=== PATIENT | female | born 1970 | race Caucasian/White ===

== ENCOUNTER 2024-08-31 14:22 | Outpatient (CLI) | payer OTHER, BC, SELFPAY ==
--- OUTSIDE RECORDS SUMMARY | 2017-11-10 13:00 | XMS_ITS | Encounter Summary ---
Author Organization [facility] Address [address] [place] [address] Care Team Providers Care Lead Burner Supervisor Name Role Phone Hilario Zapata DO Primary Care Provider Unavailable Encounter Details Date Type Department Care Team (Late st Contact Info) Description 11/10/2017 1:00 PM EDT Hospital Encounter [facility] [address] [facility], [address] [place] [phone] Paulo Burch MD [address] [facility] [address] [place] [address] Social History Tobacco Use Types Packs/Day Years Used Date Smoking Tobacco: Never Passive Smoke Exposure: Past Smokeless Tobacco: Never Alcohol Use Standard Drinks/Week Comments No 0 (1 standard drink = 0.6 oz pur e alcohol) Overall Financial Resource Strain (CARDIA) Answe r Date Recorded How hard is it for you to pa y for the very basics like food, housing, medical care, and heating? Not hard at all 09/18/2020 PHQ-2 Answer Date Recorded PHQ-9 Total Score 0 09/18/2020 Hunger Vital Sign Answer Date Recorded Within the past 12 months, y ou worried that your food would run out before you got the money to buy more. Never true 09/19/19 21 Within the past 12 months, t he food you bought just didn't last and you didn't have money to get more. Never true 09/18/2020 Comments No Sex and Gender Information Value Date Recorded Sex Assigned at Not on file Legal Sex Female 6:48 AM EST Gender Identity Not on file Sexual Orientation Not on file COVID-19 Exposure Response Date Recorded In the last month, have you been in contact with someone who was confirmed or suspected to have Coronavirus / COVID-19? No / Unsure 02/18/2020 2:39 PM EST documented as of this encounter Plan of Treatment Not on file documented as of this encounter Procedures Procedure Name Priority Date/Time Associated Diagnosis Comments BASELINE DIAGNOSTIC SLEEP STUDY 11/30/2017 12:23 PM EDT documented in this encounter Results * BASELINE DIAGNOSTIC SLEEP STUDY (11/30/2017 12:23 PM EDT) [facility] SLEEP CENTER ORDERABLES Final Re sult documented in this encounter Visit Diagnoses Not on filedocumented in this encounter Care Teams Lead Burner Supervisor Relationship Specialty Start Date End Date Hilario Zapata DO PCP - General Family Medicine 03/14/15 04/30/18 documented as of this encounter
--- OUTSIDE RECORDS SUMMARY | 2024-07-14 09:00 | XMS_ITS | Encounter Summary ---
Author Organization [place] [address] Care Team Providers Care Refining Supervisor Name Role Phone Janel Lubin MD Primary Care Provider [phone] Reason for Referral * Mammography (Routine) - Authorized Specialty Diagnoses / Procedures Referred By Contac t Referred To Contact Radiology Diagnoses Encounter for screening mammogram for breast cancer Procedures MM MAMMO DIGITAL MELE SCREEN BILAT Janel Lubin MD [address] [place] [address] Phone: tel: fax: Referral ID Status Reason Start Date Expiration Date V isits Requested Visits Authorized [id number] Authorized 07/14/2024 07/14/2026 1 1 Reason for Visit * Reason Comments Obesity Hypertension Hyperlipidemia Depression Encounter Details Date Type Department Care Team (Late st Contact Info) Description 07/14/2024 9:00 AM EDT Office Visit [facility] [address] [place] [phone] Janel Lubin MD [address] [place] [address] Obesity, Class III, BMI 40-49.9 (morbid obesity) (Primary Dx); Encounter for screening mammogram for breast cancer; Vitamin B 12 deficiency; Essential hypertension; Major depressive disorder, recurrent, mild; Immunity status testing Social History Tobacco Use Types Packs/Day Years Used Date Smoking Tobacco: Never Smokeless Tobacco: Never Alcohol Use Standard Drinks/Week Comments Never 0 (1 standard drink = 0.6 oz pur e alcohol) PHQ-2 Answer Date Recorded PHQ-2 Total Score 0 04/26/2024 Comments No Sex and Gender Information Value Date Recorded Sex Assigned at Not on file Legal Sex Female 11:14 AM EDT Gender Identity Not on file Sexual Orientation Not on file documented as of this encounter Last Filed Vital Signs Vital Sign Reading Time Taken Comments Blood Pressure 100/78 07/14/2024 8:51 AM EDT Pulse - - Temperature 36.7 C (98 F) 07/14/2024 8:51 AM EDT Respiratory Rate - - Oxygen Saturation - - Inhaled Oxygen Concentration - - Weight 101.2 kg (223 lb) 07/14/2024 8:51 AM EDT Height 154.9 cm (5' 1 ) 07/14/2024 8:51 AM EDT Body Mass Index 42.14 07/14/2024 8:51 AM EDT documented in this encounter Functional Status * Is the person deaf or does he/she have serious difficulty hearing? Answer Date of Assessment Author No 04/26/2024 4:24 PM Nayla Salazar RMA * Is the person blind or does he/she have serious difficulty seeing even when wearing glasses? Answer Date of Assessment Author No 04/26/2024 4:24 PM Nayla Salazar RMA * Does this person have serious difficulty walking or climbing stairs? Answer Date of Assessment Author No 04/26/2024 4:24 PM Nayla Salazar RMA * Does this person have difficulty dressing or bathing? Answer Date of Assessment Author No 04/26/2024 4:24 PM Nayla Salazar RMA * Because of a physical, mental or emotional condition, does this person have difficulty doing errands alone such as visiting a doctor's office or shopping? Answer Date of Assessment Author No 04/26/2024 4:24 PM Nayla Salazar RMA documented as of this encounter Mental Status * Because of a physical, mental or emotional condition, does this person have serious difficulty concentrating, remembering or making decisions? Answer Entry Date Author No 04/26/2024 4:24 PM Nayla Salazar RMA documented in this encounter Ordered Prescriptions Prescription Sig Dispense Quantity Refills Last Filled Start Date End Date phentermine (ADIPEX-P) 37.5 mg Oral TabletIndications: Obesity, Class III, BMI 40-49.9 (morbid obesity) Take 1 Tablet by mouth every morning (before breakfast) for 30 days. 30 Tablet 07/14/2024 documented in this encounter Progress Notes * Janel Lubin MD - 07/14/2024 9:00 AM EDTAssociated Problem(s): Essential hypertension Orders: COMPREHENSIVE METABOLIC PANEL; Future LIPID SCREEN; Future TSH REFLEX TO FT4; Future * Janel Lubin MD - 07/14/2024 9:00 AM EDTAssociated Problem(s): Major depressive disorder, recurrent, mild * Janel Lubin MD - 07/14/2024 9:00 AM EDT Vitals: 07/14/24 0851 BP: 100/78 Temp: 98 ??F (36.7 ??C) Weight: 223 lb (101.2 kg) Height: 5' 1 (1.549 m) Body mass index is 42.14 kg/m??. SUBJECTIVE: Chief Complaint Patient presents with Obesity Hypertension Hyperlipidemia Depression HPI: Hypertension: Home reporting of hypertension was reviewed at time of visit. Ayla denies any episodes of dizziness, lightheadedness, presyncope, syncope, headache, or chest pain. Ayla does not report any new symptoms of possible hypertension sequelae. The patient reports that she is not having significant issues or side effects of current medications/treatments. Hyperlipidemia: Last Lipid and liver panel has been reviewed. Current cholesterol goals discussed with patient. Thepatient is on a lipid lowering agent. The patient currently is on a statin. No complaints of side effects from medication. The patient is not having issues maintaining compliance with the previously outlined care plan. The patient does not report significant side effects of current medications/treatments. Diet has been reviewed with patient. Obesity This is a chronic problem. The current episode started more than 1 year ago. The problem occurs constantly. The problem has been gradually worsening. Pertinent negatives include no coughing, fatigue or fever. Hypertension This is a chronic problem. The current episode started more than 1 year ago. The problem is unchanged. The problem is controlled. Hyperlipidemia This is a chronic problem. The current episode started more than 1 year ago. The problem occurs constantly. The problem has been unchanged. Pertinent negatives include no coughing, fatigue or fever. Depression This is a chronic problem. The current episode started more than 1 year ago. The problem occurs constantly. The problem has been unchanged. Pertinent negatives include no coughing, fatigue or fever. F/u on weight and get a b12 shot Review of Systems Constitutional: Negative for fatigue and fever. HENT: Negative. Respiratory: Negative for cough and wheezing. Cardiovascular: Negative. Gastrointestinal: Negative. Genitourinary: Negative. Musculoskeletal: Negative. Neurological: Negative. Psychiatric/Behavioral: Negative. OBJECTIVE: Physical Exam Vitals and nursing note reviewed. Constitutional: Appearance: She is obese. HENT: Head: Normocephalic. Cardiovascular: Rate and Rhythm: Normal rate. Heart sounds: No murmur heard. Pulmonary: Effort: Pulmonary effort is normal. Breath sounds: No wheezing. Abdominal: Palpations: Abdomen is soft. Tenderness: There is no abdominal tenderness. Neurological: General: No focal deficit present. Mental Status: She is alert. Psychiatric: Mood and Affect: Mood normal. Assessment & Plan Encounter for screening mammogram for breast cancer Orders: MM MAMMO DIGITAL MELE SCREEN BILAT; Future Vitamin B 12 deficiency Orders: cyanocobalamin injection 1,000 mcg Obesity, Class III, BMI 40-49.9 (morbid obesity) (HCC) stable Orders: phentermine (ADIPEX-P) 37.5 mg Oral Tablet; Take 1 Tablet by mouth every morning (before breakfast)for 30 days. Essential hypertension Orders: COMPREHENSIVE METABOLIC PANEL; Future LIPID SCREEN; Future TSH REFLEX TO FT4; Future Major depressive disorder, recurrent, mild Immunity status testing Orders: RUBEOLA ANTIBODY IGG; Future MUMPS ANTIBODY IGG; Future RUBELLA ANTIBODY IGG; Future VARICELLA ZOSTER ANTIBODY IGG; Future HEPATITIS B SURFACE ANTIBODY; Future documented in this encounter Plan of Treatment Upcoming Encounters Date Type Department Care Team (Late st Contact Info) Description 09/08/2024 10:00 AM EDT Office Visit [facility] [address] [place] [address] Janel Lubin MD [address] [place] [address] 02/04/2025 9:00 AM EST Office Visit [facility] [address] [phone] Mayra Franklin, [employer] [address] [place] [address] Scheduled Orders Name Type Priority Associated Diagnoses Orde r Schedule MM MAMMO DIGITAL MELE SCREEN BILAT Imaging Routine Encounter for screening mammogram for breast cancer 1 Occurrences starting 07/14/2024 until 07/14/2026 documented as of this encounter Goals Goal Patient Goal Type Associated Problems Recent Progress Patient-Stated? Author Blood Pressure < 140/90 Blood Pressure 100/78(2024 8:51 AM EDT) No Janel Lubin MD Maintain a healthy diet, exercise regularly and maintain an ideal body weight General No Nayla Negro RMA documented as of this encounter Procedures Procedure Name Priority Date/Time Associated Diagnosis Comments VARICELLA ZOSTER ANTIBODY IGG Routine 07/14/2024 9:42 AM EDT Immunity status testing RUBEOLA ANTIBODY IGG Routine 07/14/2024 9:42 AM EDT Immunity status testing MUMPS ANTIBODY IGG Routine 07/14/2024 9: 42 AM EDT Immunity status testing TSH REFLEX TO FT4 Routine 07/14/2024 9:4 2 AM EDT Essential hypertension RUBELLA ANTIBODY IGG Routine 07/14/2024 9:42 AM EDT Immunity status testing HEPATITIS B SURFACE ANTIBODY Routine 07/14/2024 9:42 AM EDT Immunity status testing LIPID SCREEN Routine 07/14/2024 9:42 AM EDT Essential hypertension COMPREHENSIVE METABOLIC PANEL Routine 07/14/2024 9:42 AM EDT Essential hypertension documented in this encounter Results * TSH REFLEX TO FT4 (07/14/2024 9:42 AM EDT) TSH Reflex 1.350 0.270 - 4.200 mcIU/mL 07/14/2024 3:05 PM EDT [employer] Blood VENOUS BLOOD / Unknown Venipuncture / Unknown 07/14/2024 9:42 AM EDT 07/14/2024 9:42 AM EDT Narrative [facility] - 07/14/2024 3:05 PM EDT Ingestion of dixie doses of biotin (>5 mg/day) taken within 8 hours of drawing blood sample can interfere with this immunoassay test. us Janel Lubin MD CHEMISTRY ORDERABLES Final Res ult [employer] [address] [facility] , [place] [address] * (ABNORMAL) LIPID SCREEN (07/14/2024 9:42 AM EDT) Pathologist [facility] Cholesterol 160 <200 mg/dL 07/14/2024 3:05 PM EDT [employer] Comment: < 200 Desirable 200 - 239 Borderline High >= 240 High Triglyceride 84 <150 mg/dL 07/14/2024 3:05 PM EDT [employer] Comment: < 150 Normal 150 - 199 Borderline High 200 - 499 High >= 500 Very High HDL 40 >=40 mg/dL 07/14/2024 3:05 PM EDT [employer] Comment: > 60 Optimal 40 - 60 Acceptable < 40 Low LDL Calculated 104(H) <100 mg/dL 07/14/2024 3:05 PM EDT [employer] Comment: < 100 Optimal 100 - 129 Near or above optimal 130 - 159 Borderline High 160 - 189 High >= 190 Very High The National Institutes of Health (NIH) equation is used for all lipid panels that report calculated LDL (LDL-C). Non-HDL-C Calculated 120 <=129 mg/dL 07/14/2024 3:05 PM EDT [facility] Comment: <130 Desirable 130-159 Above Desirable 160-189 Borderline High 190-219 High >= 220 Very High Fasting Specimen? Yes None 025 3:05 PM EDT [facility] Blood VENOUS BLOOD / Unknown Venipuncture / Unknown 07/14/2024 9:42 AM EDT 07/14/2024 9:42 AM EDT us Janel Lubin MD CHEMISTRY ORDERABLES Final Res ult [facility] [address] [facility] , [place] [address] * (ABNORMAL) COMPREHENSIVE METABOLIC PANEL (07/14/2024 9:42 AM EDT) Sodium 137 136 - 145 mmol/L 07/14/2024 3:05 PM EDT [facility] Potassium 4.3 3.5 - 5.0 mmol/L 07/14/2024 3:05 PM EDT [facility] Chloride 105 98 - 107 mmol/L 07/14/2024 3:05 PM EDT [facility] Total CO2 24 22 - 29 mmol/L 07/14/2024 3:05 PM EDT [facility] Anion Gap 8 7 - 16 mmol/L 07/14/2024 3:05 PM EDT [facility] Calcium 9.3 8.6 - 10.4 mg/dL 07/14/2024 3:05 PM EDT [facility] Glucose Lvl 94 70 - 99 mg/dL 07/14/2024 3:05 PM EDT [facility] BUN 23(H) 6 - 20 mg/dL 07/14/2024 3:05 PM EDT [facility] Creatinine 0.79 0.51 - 1.30 mg/dL 07/14/2024 3:05 PM EDT [facility] Albumin 3.6 3.5 - 5.2 gm/dL 07/14/2024 3:05 PM EDT [facility] Total Protein 6.7 6.4 - 8.3 gm/dL 07/14/2024 3:05 PM EDT [facility] Bili Total 0.4 0.2 - 1.3 mg/dL 07/14/2024 3:05 PM EDT [facility] ALT 25 <=41 U/L 07/14/2024 3:05 PM EDT [facility] AST 24 <=40 U/L 07/14/2024 3:05 PM EDT [facility] Alk Phos 132(H) 36 - 123 U/L 07/14/2024 3:05 PM EDT [facility] eGFR (CKD-EPIcr 2020) 88 >=60 mL/min/1.7 3 m2 07/14/2024 3:05 PM EDT [facility] Comment:Estimated GFR was ca lculated using the CKD-EPIcr (2020) equation refit without race. The equation is recommended by the National Kidney Foundation - [place] [employer] Neph[employer] Task Force. Blood VENOUS BLOOD / Unknown Venipuncture / Unknown 07/14/2024 9:42 AM EDT 07/14/2024 9:42 AM EDT us Janel Lubin MD CHEMISTRY ORDERABLES Final Res ult [facility] [address] [facility] , [place] [address] * HEPATITIS B SURFACE ANTIBODY (07/14/2024 9:42 AM EDT) Hep Bs Ab <3.50 mIU/mL 07/14/2024 3:10 PM EDT [facility] Comment: < 10 mIU/mL - Non-reactive (Result not consistent with protective immunity.) >= 10 mIU/mL - Reactive (Result consistent with protective immunity.) Blood VENOUS BLOOD / Unknown Venipuncture / Unknown 07/14/2024 9:42 AM EDT 07/14/2024 9:42 AM EDT Narrative [facility] - 07/14/2024 3:10 PM EDT Test performed using [employer] electrochemiluminescence immunassay (ECLIA). us Janel Lubin MD IMMUNOLOGY ORDERABLES Final Re sult Performing Organization Address [facility] Phone Number [facility] [address] [address] [place] [phone] * VARICELLA ZOSTER ANTIBODY IGG (07/14/2024 9:42 AM EDT) [facility] VZV Ab, IgG Positive 07/14/2024 5:04 PM EDT [facility] Blood VENOUS BLOOD / Unknown Venipuncture / Unknown 07/14/2024 9:42 AM EDT 07/14/2024 9:42 AM EDT us Janel Lubin MD IMMUNOLOGY ORDERABLES Final Re sult Performing Organization Address [facility] Number [facility] [address] [place] [address] * RUBELLA ANTIBODY IGG (07/14/2024 9:42 AM EDT) [facility] Rubella IgG 2.140 Index Value 07/14/2024 5:06 PM EDT [facility] Comment: < 0.90 - Negative No significant level of detectable rubella IgG Antibody (Presumed Non-Immune) 0.90 to 0.99 - Equivocal Repeat testing in 10-14 days is recommended > or = 1.00 - Positive Previous exposure or vaccination (Immune) Note: The magnitude of the measured result is not indicative of the amount of antibody present. Blood VENOUS BLOOD / Unknown Venipuncture / Unknown 07/14/2024 9:42 AM EDT 07/14/2024 9:42 AM EDT us Janel Lubin MD IMMUNOLOGY ORDERABLES Final Re sult Performing Organization Address [facility] Phone Number [facility] [address] [place] [address] * MUMPS ANTIBODY IGG (07/14/2024 9:42 AM EDT) [facility] Mumps Ab IgG 12.4 AU/mL 07/14/2024 5:06 PM EDT [employer] Comment: < 9.0 - Negative No significant level of detectable Mumps Virus IgG Antibody (Presumed Non- Immune) 9.0 to 10.9 - Equivocal Repeat testing in 7-14 days is recommended > or = 11.0 - Positive Previous exposure to Mumps Virus or vaccination (Immune) Note: The magnitude of the measured result is not indicative of the amount of antibody present. Blood VENOUS BLOOD / Unknown Venipuncture / Unknown 07/14/2024 9:42 AM EDT 07/14/2024 9:42 AM EDT us Janel Lubin MD IMMUNOLOGY ORDERABLES Final Re sult Performing Organization Address [facility] de Phone Number [employer] [address] [place] [address] [place] [address] * RUBEOLA ANTIBODY IGG (07/14/2024 9:42 AM EDT) Pathologist [facility] Rubeola Ab IgG >300.0 A unit/mL 07/14/2024 5:05 PM EDT [employer] Comment: <13.5 A units/mL - Negative No significant level of detectable Rubeola (Measles) IgG Antibody (Presumed Non-Immune) 13.5 - 16.5 A units/mL - Equivocal Repeat testing in 7-14 days is recommended > or = 16.5 A units/mL - Positive Indicates exposure to Measles Virus or vaccination (Immune) Note: The magnitude of the measured result is not indicative of the amount of antibody present. Blood VENOUS BLOOD / Unknown Venipuncture / Unknown 07/14/2024 9:42 AM EDT 07/14/2024 9:42 AM EDT us Janel Lubin MD IMMUNOLOGY ORDERABLES Final Re sult Performing Organization Address [facility] de Phone Number [employer] [address] [place] [address] [place] [phone] documented in this encounter Visit Diagnoses Diagnosis Obesity, Class III, BMI 40-49.9 (morbid obesity)- Primary Morbid obesity Encounter for screening mammogram for breast cancer Vitamin B 12 deficiency Other B-complex deficiencies Essential hypertension Unspecified essential hypertension Major depressive disorder, recurrent, mild Major depressive disorder, recurrent episode, mild Immunity status testing Antibody response examination documented in this encounter Administered Medications Inactive Administered Medications - up to 1 most recent administrations Medication Order MAR Action Action Date Dose Rate Site cyanocobalamin injection 1,000 mcg 1,000 mcg, Intramuscular, ONCE, 1 dose, On 07/14/24 at 0930, Dx: 1. Vitamin B 12 deficiencyIndications:Vitam in B 12 deficiency Given 07/14/2024 9:35 AM EDT 1,000 mcg Left Arm documented in this encounter Discontinued Medications Medication Sig Discontinue Reason Start Date End Da te phentermine (ADIPEX-P) 37.5 mg Oral TabletIndications:Obesit y, Class III, BMI 40-49.9 (morbid obesity) Take 1 Tablet by mouth every morning (before breakfast) for 30 days. Reorder 05/29/2024 07/14/2024 documented as of this encounter Orders Medications Ordered That Bruce ht Not Have Been Administered Count Last Ordered Date First Ordered Date cyanocobalamin injection 1,000 mcg 1 2024 documented in this encounter Care Teams Refining Supervisor Relationship Specialty Start Date End Date Janel Lubin MD [address] [place] [address] PCP - General Family Medicine 09/29/22 documented as of this encounter
--- OUTSIDE RECORDS SUMMARY | 2024-08-31 14:27 | XMS_ITS | Clinical Summary ---
Author Organization [facility] Address [address] [place] [address] Care Team Providers Care Event Marketing Assistant Name Role Phone Debra Rose MD Primary Care Provid er Allergies Active Allergy Reactions Criticality Noted Date Comments Codeine Nausea Only 03/03/2016 Medications escitalopram (LEXAPRO) 20 MG tabletIndications: Depression with anxiety TAKE ONE TABLET BY MOUTH DAILY 30 tablet 9 Active furosemide (LASIX) 20 MG tablet TAKE ONE TABLET BY MOUTH DAILY NEEDED FOR EDEMA TO LEGS AND ANKLES. 30 tablet 9 Active SUMAtriptan (IMITREX) 100 MG tabletIndications: Migraine without aura and without status migrainosus, not intractable Take 1 tablet by mouth at onset of migraine, can repeat dose 1 time in 2 hours if no relief 9 tablet 5 1 Active ondansetron (ZOFRAN ODT) 4 MG disintegrating tabletIndications: Migraine without aura and without status migrainosus, not intractable Take 1 tablet by mouth every 8 hours as needed for Nausea or Vomiting 20 tablet 1 Active diclofenac (VOLTAREN) 75 MG EC tabletIndications: Left foot pain,Foot mass, left Take 1 tablet by mouth 2 times daily Prn left foot pain. 60 tablet 1 1 Active mupirocin (BACTROBAN) 2 % ointmentIndication s:Traumatic complete tear of right rotator cuff, initial encounter Apply twice daily to each nare for 5 days prior to surgical procedure 1 g 3 Active meloxicam (MOBIC) 15 MG tabletIndications: Traumatic complete tear of right rotator cuff, initial encounter Take 1 tablet by mouth daily as needed for Pain 90 tablet 1 3 Active Active Problems Problem Noted Date Diagnosed Date Body mass index (BMI) 45.0-49.9, adult 3 Major depressive disorder, recurrent, mild 06/18 Major depressive disorder, recurrent, moderate 0 06/18/2022 Major depressive disorder, recurrent, unspecifie d 06/18/2022 Sensorineural hearing loss, bilateral 02/19/2020 DAVID on CPAP 11/26/2017 Vitamin D deficiency 08/26/2017 Leukocytosis 08/26/2017 Abnormal ultrasound of right breast 07/07/2015 Overview (07/07/2015): June 2015 Pruritic rash 11/30/2011 Pure hypercholesterolemia 04/28/2011 DAVID (obstructive sleep apnea) Resolved Problems Problem Noted Date Diagnosed Date Resolved Date URI (upper respiratory infection) 08/06/2014 03/20/2015 Laryngitis 08/06/2014 03/20/2015 Immunizations Immunization Administration Dates Next Due MMR, PRIORIX, M-M-R II, (age 12m+), SC, 0.5mL Family History Medical History Relation Name Comments Cancer Father Heart Attack Maternal Grandmother Cancer Paternal Grandfather Cancer Paternal Grandmother Relation Name Status Comments Father Maternal Grandmother Mother Alive Paternal Grandfather Paternal Grandmother Social History Tobacco Use Types Packs/Day Years Used Date Smoking Tobacco: Never Passive Smoke Exposure: Past Smokeless Tobacco: Never Tobacco Cessation:Counseling Given: Yes Alcohol Use Standard Drinks/Week Comments No 0 [...] on file Sexual Orientation Not on file Last Filed Vital Signs Vital Sign Reading Time Taken Comments Blood Pressure 125/90 12/07/2021 3:24 PM EDT Pulse 86 12/07/2021 3:24 PM EDT Temperature 37.1 C (98.7 F) 12/07/2021 3:24 PM EDT Respiratory Rate 18 12/07/2021 3:24 PM EDT Oxygen Saturation 98% 12/07/2021 3:24 PM EDT Inhaled Oxygen Concentration - - Weight 110.2 kg (243 lb) 10/08/2022 10:06 AM EDT Height 154.9 cm (5' 1 ) 10/08/2022 10:06 AM EDT Body Mass Index 45.91 10/08/2022 10:06 AM EDT Plan of Treatment Health Maintenance Due Date Last Done Comments Depression Monitoring 1980 HIV screen 12/26/1983 Hepatitis C screen 1986 DTaP/Tdap/Td vaccine (1 - Tdap) 12/26/1987 Hepatitis B vaccine (1 of 3 - 19+ 3-dose series) 12/26/1987 Pap smear 1989 Cervical cancer screen 1998 HPV (without or with Pap) 1998 Colonoscopy 2013 Colorectal Cancer Screen 2013 FIT/FOBT: Average risk 2013 Fecal-DNA (Cologuard): Average risk 2013 Sigmoidoscopy/CT colonography 2013 Pneumococcal 50+ years Vaccine (1 of 1 - PCV) 2018 Shingles vaccine (1 of 2) 2018 Lipids 08/29/2022 08/29/2017, 0303/2015, 12/23/2011 Breast cancer screen 12/19/2022 12/19/2020, 11/22/2019, 11/05/2016, Additional history exists COVID-19 Vaccine ( - 2023- season) 2023 Flu vaccine (Season Ended) 2024 01/28/2022 Hepatitis A vaccine Aged Out No longe r eligible based on patient's age to complete this topic Hib vaccine Aged Out No longer eligi ble based on patient's age to complete this topic Meningococcal (ACWY) vaccine Aged Out No longer eligible based on patient's age to complete this topic Meningococcal B vaccine Aged Out No l onger eligible based on patient's age to complete this topic Polio vaccine Aged Out No longer elig ible based on patient's age to complete this topic Procedures Procedure Name Priority Date/Time Associated Diagnosis Comments ANA CRISTINA DIGITAL SCREEN W OR WO CAD BILATERAL Routine 12/19/2020 9:58 AM EDT Visit for screening mammogram LIPID PANEL Routine 08/29/2017 12:46 PM EDT Pure hypercholesterolemia from Last 3 Months or Most Recently Relevant to Health Maintenance Results * ANA CRISTINA DIGITAL SCREEN W OR WO CAD BILATERAL (12/19/2020 9:58 AM EDT) Anatomical Region Laterality Modality Breast Bilateral Mammography 12/19/2020 10:1 1 AM EDT Impressions 12/19/2020 10:12 AM EDT No new direct or indirect signs of malignancy in either breast on the current exam. Continued routine clinical and mammographic follow up recommended. ASSESSMENT: BI-RADS 1 Negative RECOMMENDATION: Routine screening 1 year. Reminder: Patient was entered into a reminder system for annual screening mammography notification. Narrative 12/19/2020 10:12 AM EDT BILATERAL DIGITAL SCREENING MAMMOGRAM WITH CAD COMPARISON: 11/22/2019 and 02/14/2017 Lifetime breast cancer risk 11.2% FINDINGS: The breasts have scattered areas of fibroglandular density. Scattered benign calcifications in both breasts unchanged. There are no new masses, areas of architectural distortion, or suspicious microcalcifications. No skin thickening or nipple abnormality identified. No axillary adenopathy. This study was performed and interpreted using Full Field Digital Mammography and Computer Aided Detection. Please note that mammography is not 100% accurate in diagnosing breast cancer. A routine breast exam is recommended to correlate with mammographic findings. Any palpable abnormality must be assessed clinically. If the patient has a new palpable abnormality, then a Diagnostic Mammogram and/or Breast Ultrasound is indicated if clinically appropriate. us Leonila Bobo MD IMG MAMMOGRAPHY ORDERABLES Final Result * (ABNORMAL) Lipid Panel (08/29/2017 12:46 PM EDT) Cholesterol, Total 224(H) 0 - 199 mg/dL 08/30/2017 1:33 AM EDT [facility] Triglycerides 150 0 - 150 mg/dL 08/31/19 18 1:33 AM EDT [facility] HDL 45 40 - 60 mg/dL 08/30/2017 1:33 AM EDT [facility] LDL Calculated 149(H) <100 mg/dL 08/30/2017 1:33 AM EDT [facility] VLDL Cholesterol Calculated 30 Not Established mg/dL 08/30/2017 1:33 AM EDT [facility] BLOOD SPECIMEN / Unknown 08/29/2017 12:46 PM EDT 08/29/2017 8:19 PM EDT Narrative [facility] - 08/30/2017 2:07 AM EDT Performed at: [facility] [address] [place] [address] Leonila Bobo MD CHEMISTRY ORDERABLES Final Resul t [facility] [address] [phone] from Last 3 Months or Most Recently Relevant to Health Maintenance Insurance [employer] [address] Care Teams Event Marketing Assistant Relationship Specialty Start Date End Date Debra Rose MD PCP - General Internal Medicine 06/18/22
--- OUTSIDE RECORDS SUMMARY | 2024-08-31 14:27 | XMS_ITS | Encounter Summary ---
Author Organization [place] [address] Care Team Providers Care Biometrics Consultant Name Role Phone Janel Lubin MD Primary Care Provider [phone] Reason for Visit * Reason Onset Date Comments Appointment Needed 08/15/2024 B12 shot Encounter Details Date Type Department Care Team (Late st Contact Info) Description 08/15/[address] [phone] Janel Lubin MD [address] [place] [address] Appointment Needed (B12 shot) Social History Tobacco Use Types Packs/Day Years [...] on file documented as of this encounter Functional Status * Is the [...] Author No 04/26/2024 4:24 PM Nayla Salazar Rosa ROMMEL * Does this person have difficulty dressing [...] Author No 04/26/2024 4:24 PM Nayla Salazar ROMMEL documented in this encounter Miscellaneous Notes * Telephone Encounter - Nicolas White - 08/15/2024 8:39 AM EDT Select the most appropriate reason for this telephone message: Appointment Needed Appointment Requested By: Patient Provider Preference: Any Available Type of Appt Needed: Nurse Visit Detailed Reason for Appt: B12 shot Requested Timeframe: Other 08/22 pt has appt at 3:45 Reason Scheduling Assistance is Needed: Call Center not permitted to schedule Return Method of Communication: Phone Call Additional Information: N/A documented in this encounter Plan of Treatment Upcoming Encounters Date Type Department Care Team (Late st Contact Info) Description 09/08/2024 10:00 AM EDT Office Visit [facility] [address] [place] [address] Janel Lubin MD [address] [place] [address] 02/04/2025 9:00 AM EST Office Visit [facility] [address] [phone] Mayra Franklin, HOME SERVICE ADVISOR [address] [place] [address] documented as of this encounter Goals Goal Patient Goal Type Associated Problems Recent Progress Patient-Stated? Author Blood Pressure < 140/90 Blood Pressure 100/78(2024 8:51 AM EDT) No Janel Lubin MD Maintain a healthy diet, exercise regularly and maintain an ideal body weight General No Nayla Negro, A documented as of this encounter Visit Diagnoses Not on filedocumented in this encounter Care Teams Biometrics Consultant Relationship Specialty Start Date End Date Janel Lubin MD [address] [place] [address] PCP - General Family Medicine 09/29/22 documented as of this encounter
--- OUTSIDE RECORDS SUMMARY | 2024-08-31 14:27 | XMS_ITS | Clinical Summary ---
Author Organization [facility] Address [address] [place] [address] Phone Care Team Providers Care Laborer Concrete Plant Name Role Phone Janel Lubin MD Primary Care Provider [phone] Allergies Active Allergy Reactions Criticality Noted Date Comments Codeine Itching 09/29/2022 Delirious Medications omega-3 acid ethyl esters (LOVAZA) 1 gram Oral Capsule Take 1 g by mouth daily. 3 Active ondansetron (ZOFRAN-ODT) 4 mg Oral Tablet, Rapid Dissolve Take 1 Tablet by mouth every 4 hours as needed. 30 Tablet 3 3 Active fUROsemide (LASIX) 20 mg Oral Tablet Take 1 Tablet by mouth daily as needed. 30 Tablet 2 3 Active diclofenac (VOLTAREN) 1 % Top GelIndications: Chronic pain of both knees Apply 2 g topically 4 times daily. 300 g 3 4 Active naltrexone (REVIA) 50 mg Oral TabletIndicatio ns:Obesity, Class III, BMI 40-49.9 (morbid obesity) Take 1 Tablet by mouth 2 times daily. 180 Tablet 3 4 Active atorvastatin (LIPITOR) 40 mg Oral Tablet TAKE ONE TABLET BY MOUTH ONCE NIGHTLY 100 Tablet 1 5 Active valsartan (DIOVAN) 160 mg Oral Tablet TAKE 1 TABLET BY MOUTH DAILY 100 Tablet 2 5 Active buPROPion (WELLBUTRIN XL) 300 mg Oral Tablet Sustained Release 24 hrIndications:O besity, Class III, BMI 40-49.9 (morbid obesity),Major depressive disorder, recurrent, mild TAKE 1 TABLET BY MOUTH EVERY MORNING 100 Tablet 1 5 Active phentermine (ADIPEX-P) 37.5 mg Oral TabletIndicatio ns:Obesity, Class III, BMI 40-49.9 (morbid obesity) Take 1 Tablet by mouth every morning (before breakfast) for 30 days. 30 Tablet 5 08/14/19 25 Active Problems Problem Noted Date Diagnosed Date Vitamin D deficiency 09/29/2022 Hyperlipidemia with target LDL less than 100 07/2022 Assessment & Plan (05/31/2024 6:58 PM EST): Migraine without aura and wi thout status migrainosus, not intractable 09/29/2022 Assessment & Plan (05/31/2024 6:58 PM EST): Essential hypertension 09/29/2022 Assessment & Plan (07/14/2024 9:34 AM EDT): Orders: COMPREHENSIVE METABOLIC PANEL; Future LIPID SCREEN; Future TSH REFLEX TO FT4; Future Assessment & Plan (05/31/2024 6:58 PM EST): Tear of right rotator cuff 09/29/2022 Major depressive disorder, recurrent, mild 06/18 Assessment & Plan (07/14/2024 9:34 AM EDT): Major depressive disorder, recurrent, unspecifie d 06/18/2022 Sensorineural hearing loss, bilateral 02/19/2020 Obstructive sleep apnea 11/26/2017 Leukocytosis 08/26/2017 Abnormal ultrasound of breast 07/07/2015 Overview (05/27/2023): June 2015 Pruritic rash 11/30/2011 Pure hypercholesterolemia 04/28/2011 Encounters Date Type Department Care Team Description 08/17/2024 Telephone [facility] [address] [place] [id number] Janel Lubin MD Appointment Needed (B12 injection - pt has appt 09/08) 08/15/2024 Telephone [facility] [address] [place] [address] Janel Lubin MD Appointment Needed (B12 shot) 08/12/2024 Refill [facility] [address] [facility] [place] [address] Janel Lubin MD Medication Refill 07/15/2024 Results Follow-Up [address] [place] [address] Janel Lubin MD RUBEOLA ANTIBODY IGG, MUMPS ANTIBODY IGG, RUBELLA ANTIBODY IGG, Additional followed-up results: 5 07/14/2024 9:00 AM EDT Office Visit [address] [place] [address] Janel Lubin MD Obesity, Class III, BMI 40-49.9 (morbid obesity) (Primary Dx); Encounter for screening mammogram for breast cancer; Vitamin B 12 deficiency; Essential hypertension; Major depressive disorder, recurrent, mild; Immunity status testing 07/12/2024 Patient Outreach [facility] [address] [place] [address] Janel Lubin MD Central Order Completion Outreach (Mammogram) 06/30/[address] [place] [address] Janel Lubin MD Medication Refill 06/19/[address] [phone] Janel Lubin MD 06/19/[address] [address] Janel Lubin MD Appointment Needed (nurse - b12 shot) 06/18/[address] [place] [address] Janel Lubin MD Medication Refill 06/10/[address] [place] [address] Janel Lubin MD Medication Refill from Last 3 Months Immunizations Immunization Administration Dates Next Due Influenza Seasonal Injectable PF 01/10/2024 Influenza Vaccine Quadrivalent PF 04/12/2023,05/2021 MMR 06/02/1995 Surgical History Surgery Date Site/Laterality Comments TYMPANOSTOMY TUBE PLACEMENT TUBAL LIGATION Social History Tobacco Use Types Packs/Day Years Used Date Smoking Tobacco: Never Smokeless Tobacco: Never Tobacco Cessation:Counseling Given: Not Answered Alcohol Use Standard Drinks/Week Comments Never 0 (1 standard drink = 0.6 oz pur e alcohol) PHQ-2 Answer Date Recorded PHQ-2 Total Score 0 04/26/2024 Comments No Sex and Gender Information Value Date Recorded Sex Assigned at Not on file Legal Sex Female 11:14 AM EDT Gender Identity Not on file Sexual Orientation Not on file Obstetrics History Last Filed Vital Signs Vital Sign Reading [...] Mass Index 42.14 07/14/2024 8:51 AM EDT Plan of Treatment Upcoming Encounters Date Type Department Care Team (Late st Contact Info) Description 09/08/2024 10:00 AM EDT Office Visit [facility] [address] [place] [address] Janel Lubin MD [address] [place] [address] 02/04/2025 9:00 AM EST Office Visit [facility] Sleep Medicine [address] [address] Mayra Franklin, HEEL FINISHER [address] [place] [address] Health Maintenance Due Date Last Done Comments DTaP/TDaP/Td (1 - Tdap) 12/26/1987 Hepatitis B Vaccine (1 of 3 - 19+ 3-dose series) 12/26/1987 Cervical Cancer Screening 1989 Pap Smear 1989 HPV/Pap Cotest 1998 Colonoscopy 2013 FIT 2013 Sigmoidoscopy 2013 Virtual Colonography 2013 Pneumococcal Vaccine 50+ (1 of 1 - PCV) 2018 Zoster (1 of 2) 2018 COVID-19 Vaccine (1 - 2023- season) 2023 Breast Cancer Screening 02/13/2024 02/13/20 22, 02/12/2022, 12/19/2020, Additional history exists Annual Wellness Exam 12/01/2024 12/02/2023 Cologuard 10/25/2025 10/25/2022, 10/25/2022 Colon Cancer Screening 10/25/2025 Influenza Vaccine Completed 01/10/2024, , 01/28/2022 Meningococcal B Vaccine Aged Out No l onger eligible based on patient's age to complete this topic Goals Goal Patient Goal Type Associated Problems Recent Progress Patient-Stated? Author Blood Pressure < 140/90 Blood Pressure 100/78(2024 8:51 AM EDT) No Janel Lubin MD Maintain a healthy diet, exercise regularly and maintain an ideal body weight General No Nayla Negro, Shar Procedures Procedure Name Priority Date/Time Associated Diagnosis Comments TSH REFLEX TO FT4 Routine 07/14/2024 9:4 2 AM EDT Essential hypertension LIPID SCREEN Routine 07/14/2024 9:42 AM EDT Essential hypertension COMPREHENSIVE METABOLIC PANEL Routine 07/14/2024 9:42 AM EDT Essential hypertension HEPATITIS B SURFACE ANTIBODY Routine 07/14/2024 9:42 AM EDT Immunity status testing VARICELLA ZOSTER ANTIBODY IGG Routine 07/14/2024 9:42 AM EDT Immunity status testing RUBELLA ANTIBODY IGG Routine 07/14/2024 9:42 AM EDT Immunity status testing MUMPS ANTIBODY IGG Routine 07/14/2024 9: 42 AM EDT Immunity status testing RUBEOLA ANTIBODY IGG Routine 07/14/2024 9:42 AM EDT Immunity status testing COLOGUARD Routine 10/25/2022 10:05 PM EDT Screening for colon cancer HM MAMMOGRAPHY Routine 02/12/2022 12:03 PM EST from Last 3 Months or Most Recently Relevant to Health Maintenance Results * VARICELLA ZOSTER ANTIBODY IGG (07/14/2024 9:42 AM EDT) VZV Ab, IgG Positive 07/14/2024 5:04 PM EDT [employer] Blood VENOUS BLOOD / Unknown Venipuncture / Unknown 07/14/2024 9:42 AM EDT 07/14/2024 9:42 AM EDT us Janel Lubin MD IMMUNOLOGY ORDERABLES Final Re sult [employer] [address] [facility] , [place] [address] * RUBEOLA ANTIBODY IGG (07/14/2024 9:42 AM EDT) Rubeola Ab IgG >300.0 A unit/mL 07/14/2024 5:05 PM EDT [employer] Comment: <13.5 A units/mL - Negative No [...] ORDERABLES Final Re sult Performing Organization Address [facility] Co de Phone Number [employer] [address] [facility] , [facility] [place] [address] * MUMPS ANTIBODY IGG (07/14/2024 9:42 AM EDT) Mumps Ab IgG 12.4 AU/mL 07/14/2024 5:06 PM EDT [employer] Comment: < 9.0 - Negative No significant [...] ORDERABLES Final Re sult Performing Organization Address [facility] Co de Phone Number [employer] [address] [facility] , [facility], [place] [address] * TSH REFLEX TO FT4 (07/14/2024 9:42 AM EDT) TSH Reflex 1.350 0.270 - 4.200 mcIU/mL 07/14/2024 3:05 PM EDT [employer] Blood VENOUS BLOOD / Unknown Venipuncture / Unknown 07/14/2024 9:42 AM EDT 07/14/2024 9:42 AM EDT Narrative [employer] - 07/14/2024 3:05 PM EDT Ingestion of dixie doses of biotin (>5 mg/day) taken within 8 hours of drawing blood sample can interfere with this immunoassay test. us Janel Lubin MD CHEMISTRY ORDERABLES Final Res ult Performing Organization Address City/[facility]/ZIP Co de Phone Number [email or web address] [address] , [place] [address] * RUBELLA ANTIBODY IGG (07/14/2024 9:42 AM EDT) [facility] Rubella IgG 2.140 Index Value 07/14/2024 5:06 PM EDT [facility] [employer] [facility] Comment: < 0.90 - Negative [...] ORDERABLES Final Re sult Performing Organization Address [facility] Phone Number [facility] [email or web address] , [place] [address] * HEPATITIS B SURFACE ANTIBODY (07/14/2024 9:42 AM EDT) [facility] Hep Bs Ab <3.50 mIU/mL 07/14/2024 3:10 PM EDT [facility] [employer] [facility] Comment: < 10 mIU/mL - Non-reactive (Result not consistent with protective immunity.) >= 10 mIU/mL - Reactive (Result consistent with protective immunity.) Blood VENOUS BLOOD / Unknown Venipuncture / Unknown 07/14/2024 9:42 AM EDT 07/14/2024 9:42 AM EDT Narrative [facility] [employer] [facility] - 07/14/2024 3:10 PM EDT Test performed using Rhonda [employer] electrochemiluminescence immunassay (ECLIA). us Janel Lubin MD IMMUNOLOGY ORDERABLES Final Re sult Performing Organization Address [facility] de Phone Number [facility] [employer] [address] , [place] [address] * (ABNORMAL) LIPID SCREEN (07/14/2024 9:42 AM EDT) Cholesterol 160 <200 mg/dL 07/14/2024 3:05 PM EDT [facility] Comment: < 200 Desirable 200 - 239 Borderline High >= 240 High Triglyceride 84 <150 mg/dL 07/14/2024 3:05 PM EDT [employer] [facility] Comment: < 150 Normal 150 - 199 Borderline High 200 - 499 High >= 500 Very High HDL 40 >=40 mg/dL 07/14/2024 3:05 PM EDT [employer] Comment: > 60 Optimal 40 - 60 Acceptable < 40 Low LDL Calculated 104(H) <100 mg/dL 07/14/2024 3:05 PM EDT [employer] [facility] Comment: < 100 Optimal 100 - 129 Near or above optimal 130 - 159 Borderline High 160 - 189 High >= 190 Very High The National Institutes of Health (NIH) equation is used for all lipid panels that report calculated LDL (LDL-C). Non-HDL-C Calculated 120 <=129 mg/dL 07/14/2024 3:05 PM EDT [employer] [facility] Comment: <130 Desirable 130-159 Above Desirable 160-189 Borderline High 190-219 High >= 220 Very High Fasting Specimen? Yes None 025 3:05 PM EDT [employer] Blood VENOUS BLOOD / Unknown Venipuncture / Unknown 07/14/2024 9:42 AM EDT 07/14/2024 9:42 AM EDT us Janel Lubin MD CHEMISTRY ORDERABLES Final Res ult [facility] [address] [facility] , [address] [place], [place] [id number] * (ABNORMAL) COMPREHENSIVE METABOLIC PANEL (07/14/2024 9:42 AM EDT) Sodium 137 136 - 145 mmol/L 07/14/2024 3:05 PM EDT [facility] Potassium 4.3 3.5 - 5.0 mmol/L 07/14/2024 3:05 PM EDT [facility] Chloride 105 98 - 107 mmol/L 07/14/2024 3:05 PM EDT [facility] Total CO2 24 22 - 29 mmol/L 07/14/2024 3:05 PM EDT [facility] Anion Gap 8 7 - 16 mmol/L 07/14/2024 3:05 PM EDT [facility] Calcium 9.3 8.6 - 10.4 mg/dL 07/14/2024 3:05 PM EDT [facility] Glucose Lvl 94 70 - 99 mg/dL 07/14/2024 3:05 PM EDT [facility] BUN 23(H) 6 - 20 mg/dL 07/14/2024 3:05 PM EDT [facility] Creatinine 0.79 0.51 - 1.30 mg/dL 07/14/2024 3:05 PM EDT [facility] Albumin 3.6 3.5 - 5.2 gm/dL 07/14/2024 3:05 PM EDT [facility] Total Protein 6.7 6.4 - 8.3 gm/dL 07/14/2024 3:05 PM EDT [facility] Bili Total 0.4 0.2 - 1.3 mg/dL 07/14/2024 3:05 PM EDT [facility] ALT 25 <=41 U/L 07/14/2024 3:05 PM EDT [facility] AST 24 <=40 U/L 07/14/2024 3:05 PM EDT [facility] Alk Phos 132(H) 36 - 123 U/L 07/14/2024 3:05 PM EDT [facility] eGFR (CKD-EPIcr 2020) 88 >=60 mL/min/1.7 3 m2 07/14/2024 3:05 PM EDT [facility] Comment:Estimated GFR was ca lculated using the CKD-EPIcr (2020) equation refit without race. The equation is recommended by the National Kidney Foundation - [place] Society of Nephrology Task Force. Blood VENOUS BLOOD / Unknown Venipuncture / Unknown 07/14/2024 9:42 AM EDT 07/14/2024 9:42 AM EDT us Janel Lubin MD CHEMISTRY ORDERABLES Final Res ult [facility] [address] [facility] , [place] [address] * COLOGUARD (10/25/2022 10:05 PM EDT) COLOGUARD CLINICAL REPORT Negative Negative [facility] Comment: NEGATIVE TEST RESULT. A negative Cologuard result indicates a low likelihood that a colorectal cancer (CRC) or advanced adenoma (adenomatous polyps with more advanced pre-malignant features) is present. The chance that a person with a negative Cologuard test has a colorectal cancer is less than 1 in 1500 (negative predictive value >99.9%) or has an advanced adenoma is less than 5.3% (negative predictive value 94.7%). These data are based on a prospective cross-sectional study of 10,000 individuals at average risk for colorectal cancer who were screened with both Cologuard and colonoscopy. (Segundo Sawyer et al, N Engl J Med 2014;370(14):5617-6381) The normal value (reference range) for this assay is negative. COLOGUARD RE-SCREENING RECOMMENDATION: Periodic colorectal cancer screening is an important part of preventive healthcare for asymptomatic individuals at average risk for colorectal cancer. Following a negative Cologuard result, the [place] Cancer Society and U.S. Multi-Society Task Force screening guidelines recommend a Cologuard re-screening interval of 3 years. References: [employer] Society Guideline for Colorectal Cancer Screening: https://www.cancer.org/cancer/piios-hjcxhc-odkmmx/adhggbhjb-vxtaiaevh-sjxffym/ac s-rec ommendations.html.; Haroldo DK, Sven CR, Mary NajeraK, Colorectal Cancer Screening: Recommendations for Physicians and Patients from the U.S. Multi-Society Task Force on Colorectal Cancer Screening , Am J Gastroenterology 2017; 112:4188-4951. TEST DESCRIPTION: Composite algorithmic analysis of stool DNA-biomarkers with hemoglobin immunoassay. Quantitative values of individual biomarkers are not reportable and are not associated with individual biomarker result reference ranges. Cologuard is intended for colorectal cancer screening of adults of either sex, 45 years or older, who are at average-risk for colorectal cancer (CRC). Cologuard has been approved for use by the U.S. FDA. The performance of Cologuard was established in a cross sectional study of average-risk adults aged 50-84. Cologuard performance in patients ages 45 to 49 years was estimated by sub-group analysis of near-age groups. Colonoscopies performed for a positive result may find as the most clinically significant lesion: colorectal cancer [4.0%], advanced adenoma (including sessile serrated polyps greater than or equal to 1cm diameter) [20%] or non- advanced adenoma [31%]; or no colorectal neoplasia [45%]. These estimates are derived from a prospective cross-sectional screening study of 10,000 individuals at average risk for colorectal cancer who were screened with both Cologuard and colonoscopy. (Segundo Carrion al, N Engl J Med 2014;370(14):1142-4415.) Cologuard may produce a false negative or false positive result (no colorectal cancer or precancerous polyp present at colonoscopy follow up). A negative Cologuard test result does not guarantee the absence of CRC or advanced adenoma (pre-cancer). The current Cologuard screening interval is every 3 years. ([place] Cancer Society and U.S. Multi-Society Task Force). Cologuard performance data in a 10,000 patient pivotal study using colonoscopy as the reference method can be accessed at the following location: www.[employer].UpCounsel/results. Additional description of the Cologuard test process, warnings and precautions can be found at www.[employer].com. Stool 10/25/2022 10:0 5 PM EDT 10/27/2022 5:56 PM EDT Janel Lubin MD [employer] SCIENCE - ORDERABLES Fin al Result [facility] [employer], [facility] [address] [place] [address], [facility] [employer] [address] [place] [address] * HM MAMMOGRAPHY (02/12/2022 12:03 PM EST) us Historical Provider Generic HEALTH MAINTENANCE F inal Result [facility] OFFICE from Last 3 Months or Most Recently Relevant to Health Maintenance Insurance [employer] PPO Care Teams Laborer Concrete Plant Relationship Specialty Start Date End Date Janel Lubin MD [address] [place] [address] PCP - General Family Medicine 09/29/22
--- OUTSIDE RECORDS SUMMARY | 2024-08-31 14:27 | XMS_ITS | Encounter Summary ---
Author Organization [facility] Address [address] [place] [address] Care Team Providers Care Hair Sample Matcher Name Role Phone Debra Rose MD Primary Care Provid er Reason for Visit * Reason Onset Date Comments Medication Problem 10/13/2017 Diuretic Encounter Details Date Type Department Care Team (Late st Contact Info) Description 10/13/2017 [place] [address] Hilario Zapata DO Medication Problem (Diuretic) Social History Tobacco Use Types Packs/Day Years Used Date Smoking Tobacco: Never Smokeless Tobacco: Never Alcohol Use Standard Drinks/Week Comments No 0 (1 standard drink = 0.6 oz pur e alcohol) Comments No Sex and Gender Information Value Date Recorded Sex Assigned at Not on file Legal Sex Female 6:48 AM EST Gender Identity Not on file Sexual Orientation Not on file documented as of this encounter Plan of Treatment Not on file documented as of this encounter Visit Diagnoses Not on filedocumented in this encounter Care Teams Hair Sample Matcher Relationship Specialty Start Date End Date Debra Rose MD PCP - General Internal Medicine 06/18/22 documented as of this encounter
--- OUTSIDE RECORDS SUMMARY | 2024-08-31 14:27 | XMS_ITS | Encounter Summary ---
Author Organization [facility] [place] [address] Phone Care Team Providers Care Antique Furniture Restorer Name Role Phone Janel Lubin MD Primary Care Provider [phone] Reason for Referral * Other (Routine) - Closed Specialty Diagnoses / Procedures Referred By Contac t Referred To Contact Diagnoses Visit for screening mammogram Procedures ANA CRISTINA SCR BILAT MELE ANA CRISTINA SCR BILAT Janel Lubin MD Phone: tel: fax: Referral ID Status Reason Start Date Expiration Date V isits Requested Visits Authorized [id number] Closed Specialty Services Required 03/30/2023 03/29/2024 1 1 Encounter Details Date Type Department Care Team (Late st Contact Info) Description 03/30/2023 Orders Only [facility] Central Scheduling [address] [place] [address] Janel Lubin MD [address] [place] [address] Visit for screening mammogram (Primary Dx) Social History Tobacco Use Types Packs/Day Years Used Date Smoking Tobacco: Never Smokeless Tobacco: Never Alcohol Use Standard Drinks/Week Comments No 0 (1 standard drink = 0.6 oz pur e alcohol) Hunger Vital Sign Answer Date Recorded Within the past 12 months, y ou worried that your food would run out before you got the money to buy more. Never true 09/11/19 23 Within the past 12 months, t he food you bought just didn't last and you didn't have money to get more. Never true 09/10/2022 Comments No Sex and Gender Information Value Date Recorded Sex Assigned at Not on file Legal Sex Female 8:00 PM EDT Gender Identity Not on file Sexual Orientation Not on file documented as of this encounter Plan of Treatment Scheduled Orders Name Type Priority Associated Diagnoses Orde r Schedule ANA CRISTINA SCR BILAT MELE Imaging Routine Visit for screening mammogram Expected: 03/30/2023, Expires: 05/28/2024 documented as of this encounter Visit Diagnoses Diagnosis Visit for screening mammogram- Primary Other screening mammogram documented in this encounter Care Teams Antique Furniture Restorer Relationship Specialty Start Date End Date Janel Lubin MD PCP - General Family Medicine 11/12/22 documented as of this encounter
--- OUTSIDE RECORDS SUMMARY | 2024-08-31 14:27 | XMS_ITS | Encounter Summary ---
Author Organization [place] [address] Care Team Providers Care Technical Developer Name Role Phone Janel Lubin MD Primary Care Provider [phone] Reason for Visit * Reason Comments Medication Refill Encounter Details Date Type Department Care Team (Late st Contact Info) Description 08/12/2024 Refill SEP [facility] [address] [place] [address] Janel Lubin MD [address] [place] [id number] Medication Refill Social History Tobacco Use Types Packs/Day Years [...] of Assessment Author No 04/26/2024 4:24 PM EST Nayla Negro Rosa ROMMEL * Because of a physical, mental or emotional condition, does this person have difficulty doing errands alone such as visiting a doctor's office or shopping? Answer Date of Assessment Author No 04/26/2024 4:24 PM EST Lilly Negroadan Lee ROMMEL documented as of this encounter Mental Status * Because of a physical, mental or emotional condition, does this person have serious difficulty concentrating, remembering or making decisions? Answer Entry Date Author No 04/26/2024 4:24 PM EST Marky ROMMEL Castillo documented in this encounter Plan of Treatment Upcoming Encounters Date Type Department Care Team (Late st Contact Info) Description 09/08/2024 10:00 AM EDT Office Visit SEP [facility] [address] [place] [address] Janel Lubin MD [address] [place] [id number] 02/04/2025 9:00 AM EST Office Visit [facility] [address] [address] Mayra Franklin, SCULPTURE CONSERVATOR [address] [place] [address] documented as of this encounter Goals Goal Patient Goal Type Associated Problems Recent Progress Patient-Stated? Author Blood Pressure < 140/90 Blood Pressure 100/78(2024 8:51 AM EDT) No Janel Lubin MD Maintain a healthy diet, exercise regularly and maintain an ideal body weight General No Nayla Negro RMA documented as of this encounter Visit Diagnoses Diagnosis Obesity, Class III, BMI 40-49.9 (morbid obesity) Morbid obesity documented in this encounter Care Teams Technical Developer Relationship Specialty Start Date End Date Janel Lubin MD [address] [place] [address] PCP - General Family Medicine 7/5/23 documented as of this encounter
--- OUTSIDE RECORDS SUMMARY | 2024-08-31 14:27 | XMS_ITS | Encounter Summary ---
Author Organization [facility] [address] Care Team Providers Care Visual Artist Name Role Phone Janel Lubin MD Primary Care Provider Encounter Details Date Type Department Care Team (Late st Contact Info) Description 06/19/2024 Refill SEP [facility] [address] [place] [address] Janel Lubin MD 100 [place] [address] Social History Tobacco Use Types Packs/Day Years Used Date Smoking Tobacco: Never Smokeless Tobacco: Never PHQ-2 Answer Date Recorded PHQ-2 Total Score [...] of Assessment Author No 04/26/2024 4:24 PM DELONTE Negro Nayla ROMMEL Lee documented as of this encounter Mental Status * Because of a physical, mental or emotional condition, does this person have serious difficulty concentrating, remembering or making decisions? Answer Entry Date Author No 04/26/2024 4:24 PM DELONTE Negro NaylaROMMEL Bang documented in this encounter Miscellaneous Notes * Telephone Encounter - Roxy Borges - 06/19/2024 10:46 AM EDT Select the most appropriate reason for this telephone message: Medication Refill Who is requesting the refill: Patient Medication(s)Name/Dosage/Frequency: phentermine (ADIPEX-P) 37.5 mg Oral Tablet [Pharmacy Med Name: PHENTERMINE 37.5 MG TABLET] 30 Tablet -- 06/18/2024 -- Request refused: Patient has requested refill too soon Sig - Route: TAKE 1 TABLET BY MOUTH EVERY MORNING BEFORE BREAKFAST - Oral Did patient contact the pharmacy first: Yes pharmacy said it was denied How many days left on hand: 0 Future appt date w/ prescribing provider: Delicia-4 Pharmacy & Location: [facility] [id number] [place] [address] [address] [employer] [phone] Return Method of Communication: Phone Call Additional Information: med pended please adv documented in this encounter Plan of Treatment Upcoming Encounters Date Type Department Care Team (Late st Contact Info) Description 09/08/2024 10:00 AM EDT Office Visit SEP [address] [address] Janel Lubin MD [address] [place] [address] 02/04/2025 9:00 AM EST Office Visit [facility] [address] [phone] Mayra Franklin, AWNING MAKER AND INSTALLER [address] [place] [address] documented as of this encounter Goals Goal Patient Goal Type Associated Problems Recent Progress Patient-Stated? Author Blood Pressure < 140/90 Blood Pressure 100/78(2024 8:51 AM EDT) No Janel Lubin MD Maintain a healthy diet, exercise regularly and maintain an ideal body weight General No Nayla Negro Shar documented as of this encounter Visit Diagnoses Diagnosis Obesity, Class III, BMI 40-49.9 (morbid obesity) Morbid obesity documented in this encounter Care Teams Visual Artist Relationship Specialty Start Date End Date Janel Lubin MD [address] [place] [address] PCP - General Family Medicine 09/29/22 documented as of this encounter
--- OUTSIDE RECORDS SUMMARY | 2024-08-31 14:27 | XMS_ITS | Encounter Summary ---
Author Organization [facility] Address [address] [place] [address] Care Team Providers Care Backfiller Name Role Phone Debra Rose MD Primary Care Provid er Encounter Details Date Type Department Care Team (Late st Contact Info) Description 08/10/2017 Direct Admit Orders [address] [phone] Hilario Zapata DO Social History Tobacco Use Types Packs/Day Years [...] on filedocumented in this encounter Care Teams Backfiller Relationship Specialty Start Date End Date Debra Rose MD PCP - General Internal Medicine 06/18/22 documented as of this encounter
--- OUTSIDE RECORDS SUMMARY | 2024-08-31 14:27 | XMS_ITS | Referral Summary ---
Author Organization [facility] Address [address] [place] [address] Phone Care Team Providers Care Car Chaser Name Role Phone Janel Lubin MD Primary Care Provider [phone] Allergies Active Allergy Reactions Criticality Noted Date Comments Codeine Nausea 09/24/2014 Medications Misc. Devices (STRAINER/STAINLE SS STEEL/2.5 ) MISC 1 each by Does Not Apply route daily. 1 each 2 Active hydroCHLOROthiazi de (HYDRODIURIL) 25 MG TABS Take 1 tablet by mouth every morning. 30 tablet 2 3 Active omega-3 acid ethyl esters (LOVAZA) 1 g CAPS TAKE FOUR CAPSULES BY MOUTH DAILY. MAY TAKE TWO CAPSULES BY MOUTH TWICE A DAY PER PATIENT PREFERENCE 120 capsule 3 Active atorvastatin (LIPITOR) 40 MG TABS TAKE ONE TABLET BY MOUTH DAILY 90 tablet 1 3 Active valsartan (DIOVAN) 160 MG TABSIndications:E ssential hypertension Take 1 tablet by mouth daily. 60 tablet 1 3 Active Active Problems Problem Noted Date Diagnosed Date Essential hypertension 07/16/2022 Major depressive disorder, recurrent, moderate 0 06/18/2022 09/10/2022 Morbid obesity with body mas s index (BMI) of 45.0 to 49.9 in adult 01/28/2022 Obstructive sleep apnea 11/26/2017 09/11/19 Pure hypercholesterolemia 04/28/20112022 Immunizations Immunization Administration Dates Next Due Influenza Vaccine, Inactivated, Quadrivalent PF 01/28/2022 Measles/Mumps/Rubella, SQ 06/02/1995 Social History Tobacco Use Types Packs/Day Years [...] money to get more. Never true 09/10/2022 Food Insecurities Answer Date Recorded Worried about running out of food Not on file 04/17/2023 Food Bought Not on file 04/17/2023 Housing/Utilities Answer Date Recorded Worried about losing home Not on file 2023 Stayed outside house Not on file 04/17/2023 Unable to get utilities Not on file 04/17/19 24 Interpersonal Safety Answer Date Record ed Feel physically or emotionally unsafe where curr ently live Not on file 04/17/2023 Harm by anyone Not on file 04/17/2023 Emotionally Harmed Not on file 04/17/2023 Transportation Answer Date Recorded Worried about transportation Not on file Utilities Answer Date Recorded Worried about losing home Not on file 2023 Stayed outside house Not on file 07/30/2023 Unable to get utilities Not on file 07/30/19 24 Comments No Sex and Gender Information Value Date Recorded Sex Assigned at Not on file Legal Sex Female 8:00 PM EDT Gender Identity Not on file Sexual Orientation Not on file Last Filed Vital Signs Vital Sign Reading Time Taken Comments Blood Pressure 139/89 09/10/2022 9:00 AM EDT Pulse 69 09/10/2022 9:00 AM EDT Temperature 36.7 C (98.1 F) 09/10/2022 9:00 AM EDT Respiratory Rate 14 07/16/2022 11:1 1 AM EDT Oxygen Saturation 99% 09/10/2022 9:00 AM EDT Inhaled Oxygen Concentration - - Weight 112.4 kg (247 lb 11.2 oz) 09/10/2022 9:00 AM EDT Height 154.9 cm (5' 1 ) 09/10/2022 9:00 AM EDT Body Mass Index 46.8 09/10/2022 9:00 AM EDT Plan of Treatment Not on file Procedures Procedure Name Priority Date/Time Associated Diagnosis Comments [facility] SCR BILAT Routine 02/12/2022 9:27 AM EST Encounter for screening mammogram for malignant neoplasm of breast from Last 3 Months or Most Recently Relevant to Health Maintenance Results * [facility] SCR BILAT (02/12/2022 9:27 AM EST) Anatomical Region Laterality Modality Chest Bilateral Mammography 02/12/2022 2:29 PM EST Impressions 02/12/2022 2:31 PM EST No mammographic evidence of malignancy CATEGORY BI-RADS: 2: Benign MANAGEMENT: Routine annual mammography unless otherwise clinically indicated NOTE: If additional imaging is recommended, the Breast Center will contact the patient directly to coordinate that appointment, or scheduling can be reached at [phone]. RISK ASSESSMENT: A preliminary breast cancer risk assessment was conducted as part of the patient?s screening mammogram. Patients with a preliminarily elevated screening score who are interested in further information are encouraged to contact our High Risk Navigator at [phone], or provider can place a referral to the high risk breast program, [id number]. Patient's lifetime Gretel model risk: 8.37% (20% and greater considered high risk) [facility] Family History Risk Score: not performed (1 and greater considered high risk) Narrative 02/12/2022 2:31 PM EST SCREENING DIGITAL BILATERAL MAMMOGRAM WITH COMPUTER AIDED DETECTION HISTORY: Routine annual screening COMPARISON: 2020, 2019 TECHNIQUE: Bilateral mediolateral oblique and craniocaudal views with computer aided detection BREAST COMPOSITION: There are scattered areas of fibroglandular density FINDINGS: No suspicious masses, suspicious microcalcifications or areas of nonsurgical architectural distortion identified. us Antolin Whitaker MD [facility] Final Resu lt from Last 3 Months or Most Recently Relevant to Health Maintenance Insurance [employer] ALL OTHERS NOT MEDICARE Care Teams Car Chaser Relationship Specialty Start Date End Date Janel Lubin MD PCP - General Family Medicine 11/12/22
--- OUTSIDE RECORDS SUMMARY | 2024-08-31 14:27 | XMS_ITS | Clinical Summary ---
Author Organization [facility] Address [address] [place] [address] Phone Care Team Providers Care Financial Sales Professional Name Role Phone Janel Lubin MD Primary Care Provider [phone] Allergies Active Allergy Reactions Criticality Noted Date [...] Inactivated, Quadrivalent PF 01/28/2022 Measles/Mumps/Rubella, SQ 06/02/1995 Family History Medical History Relation Name Comments Asthma Child Brandy Heart Attack Father Cardiac arrest (unexplained) Maternal Grandmother Asthma Natural child Rolo Stroke Paternal Grandfather Brain cancer Paternal Uncle Kidney Disease Sister Breast cancer Neg Hx Colon cancer Neg Hx Endometrial cancer Neg Hx Ovarian cancer Neg Hx Relation Name Status Comments Brother Alive Child Brandy Alive Father Maternal Grandfather Maternal Grandmother Mother Alive Natural child Rolo Alive Paternal Grandfather Paternal Grandmother Paternal Uncle Sister Alive Social History Tobacco Use Types Packs/Day Years [...] 09/10/2022 9:00 AM EDT Plan of Treatment Health Maintenance Due Date Last Done Comments DTap,Tdap,and Td (1 - Tdap) 12/26/1979 Pap Screening 1989 Colonoscopy 2013 Pneumococcal 50+ (1 of 1 - PCV) 2018 Shingrix (#1) 2018 Mammogram Screening 02/12/2023 02/12/2022 RSV Vaccine (60+ or ) (1 - 1-dose 75+ series) 12/26/2043 Influenza Vaccine Completed 01/10/2024, 04/12/2023, 01/28/2022 HPV Aged Out No longer eligi ble based on patient's age to complete this topic Meningococcal conjugate cedric nt 4 (MCV4) Aged Out No longer eligible b ased on patient's age to complete this topic RSV Immunization (<20 months) Aged Out No longer eligible based on patient's age to complete this topic Procedures Procedure Name Priority Date/Time Associated Diagnosis Comments [facility] SCR BILAT Routine 02/12/2022 9:27 AM EST Encounter for screening mammogram for malignant neoplasm of breast from Last 3 Months or Most Recently Relevant to Health Maintenance Results * [facility] SCR BILAT (02/12/2022 9:27 AM EST) Anatomical Region Laterality Modality Chest Bilateral Mammography 02/12/2022 2:29 PM EST Impressions 02/12/2022 2:31 PM EST No mammographic evidence of malignancy CATEGORY BI-RADS: 2: Benign MANAGEMENT: Routine annual mammography unless otherwise clinically indicated NOTE: If additional imaging is recommended, the Breast Center will contact the patient directly to coordinate that appointment, or scheduling can be reached at [phone]. RISK ASSESSMENT: A preliminary breast cancer risk assessment was conducted as part of the patient?s screening mammogram. Patients with a preliminarily elevated screening score who are interested in further information are encouraged to contact our High Risk Navigator at [phone], or provider can place a referral to the high risk breast program, [id number]. Patient's lifetime Gretel model risk: 8.37% (20% and greater considered high risk) [facility] Family History Risk Score: not performed (1 [...] or areas of nonsurgical architectural distortion identified. Antolin Whitaker MD [facility] Final Resu lt from Last 3 Months or Most Recently Relevant to Health Maintenance Insurance [employer] [place] [address] Care Teams Financial Sales Professional Relationship Specialty Start Date End Date Janel Lubin MD PCP - General Family Medicine 11/12/22
--- OUTSIDE RECORDS SUMMARY | 2024-08-31 14:27 | XMS_ITS | Encounter Summary ---
Author Organization [facility] [place] [address] Care Team Providers Care Floral Designer Name Role Phone Janel Lubin MD Primary Care Provider [phone] Reason for Visit * Reason Onset Date Comments Central Order Completion Outreach 07/12/2024 Mammogram Encounter Details Date Type Department Care Team (Late st Contact Info) Description 07/12/2024 Patient Outreach [facility] [address] [place] [address] Janel Lubin MD [address] [place] [id number] Central Order Completion Outreach (Mammogram) Social History Tobacco Use Types Packs/Day Years [...] 4:24 PM Nayla Salazar Rosa ROMMEL * Because of a physical, mental or emotional condition, does this person have difficulty doing errands alone such as visiting a doctor's office or shopping? Answer Date of Assessment Author No 04/26/2024 4:24 PM Nayla Salazar Rosa ROMMEL documented as of this encounter Mental Status * Because of a physical, mental or emotional condition, does this person have serious difficulty concentrating, remembering or making decisions? Answer Entry Date Author No 04/26/2024 4:24 PM Nayla Salazar Rosa ROMMEL documented in this encounter Progress Notes * Jaclyn Vidales RN - 07/12/2024 8:41 AM EDT SEP Order Completion Outcome Tracking Contact Attempt:: Final Mammogram Outcome:: Patient Declined Patient declined reason:: Patient Availability (Pt is starting a new job on the and doesn't have her calendar. Patient stated that she would call back. Contact information and hours provided.) No other care gaps addressed on this call documented in this encounter Plan of Treatment Upcoming Encounters Date Type Department Care Team (Late st Contact Info) Description 09/08/2024 10:00 AM EDT Office Visit SEP [facility] [address] [place] [address] Janel Lubin MD [address] [place], [place] [id number] 02/04/2025 9:00 AM EST Office Visit [facility] Sleep Medicine [address] [address] Mayra Franklin, FISH FARMER [address] [place] [address] documented as of this encounter Goals Goal Patient Goal Type Associated Problems Recent Progress Patient-Stated? Author Blood Pressure < 140/90 Blood Pressure 100/78(2024 8:51 AM EDT) No Janel Lubin MD Maintain a healthy diet, exercise regularly and maintain an ideal body weight General No Nayla Negro, RMA documented as of this encounter Visit Diagnoses Not on filedocumented in this encounter Care Teams Floral Designer Relationship Specialty Start Date End Date Janel Lubin MD [address] [place] [address] PCP - General Family Medicine 09/29/22 documented as of this encounter
--- OUTSIDE RECORDS SUMMARY | 2024-08-31 14:27 | XMS_ITS | Encounter Summary ---
Author Organization [place] [address] Care Team Providers Care C D Stripper Name Role Phone Janel Lubin MD Primary Care Provider [phone] Reason for Visit * Reason Onset Date Comments Appointment Needed 08/17/2024 B12 injection - pt has appt 09/08 Encounter Details Date Type Department Care Team (Late st Contact Info) Description 08/17/2024 Telephone [facility] [address] [place] [address] Janel Lubin MD [address] [place] [address] Appointment Needed (B12 injection - pt has appt 09/08) Social History Tobacco Use Types Packs/Day Years [...] Nayla Salazar RMA documented in this encounter Miscellaneous Notes * Telephone Encounter - Doris Simms - 08/17/2024 9:51 AM EDT Added note to appt on 09/08 for B12 * Telephone Encounter - Nicolas White - 08/17/2024 9:19 AM EDT Select the most appropriate reason for this telephone message: Appointment Needed Appointment Requested By: Patient Provider Preference: Any Available Type of Appt Needed: Nurse Visit Detailed Reason for Appt: B12 injection - pt has appt 09/08 Requested Timeframe: Other 09/08 Reason Scheduling Assistance is Needed: Call Center not permitted to schedule Return Method of Communication: Phone Call Additional Information: N/A documented in this encounter Plan of Treatment Upcoming Encounters Date Type Department Care Team (Late st Contact Info) Description 09/08/2024 10:00 AM EDT Office Visit [facility] [address] [place] [phone] Janel Lubin MD [address] [place] [address] 02/04/2025 9:00 AM EST Office [place] [facility] [address] [address] Mayra Franklin, JOB PRESS OPERATOR [address] [place] [address] documented as of this encounter [...] on filedocumented in this encounter Care Teams C D Stripper Relationship Specialty Start Date End Date Janel Lubin MD [address] [place] [address] PCP - General Family Medicine 09/29/22 documented as of this encounter
--- OUTSIDE RECORDS SUMMARY | 2024-08-31 14:27 | XMS_ITS | Encounter Summary ---
Author Organization [place] [address] Care Team Providers Care Garage Door Service Technician Name Role Phone Janel Lubin MD Primary Care Provider Encounter Details Date Type Department Care Team (Late st Contact Info) Description 07/15/2024 Results Follow-Up [address] [address] Janel Lubin MD [address] [place] [address] RUBE[employer] ANTIBODY IGG, [employer] ANTIBODY IGG, RUBELLA ANTIBODY IGG, Additional followed-up results: 5 Social History Tobacco Use Types Packs/Day Years [...] Author No 04/26/2024 4:24 PM DELONTE Negro ROMMEL Castillo * Because of a physical, mental or emotional condition, does this person have difficulty doing errands alone such as visiting a doctor's office or shopping? Answer Date of Assessment Author No 04/26/2024 4:24 PM DELONTE Negro ROMMEL Castillo documented as of this encounter Mental Status * Because of a physical, mental or emotional condition, does this person have serious difficulty concentrating, remembering or making decisions? Answer Entry Date Author No 04/26/2024 4:24 PM DELONTE Nayla Negro RMA documented in this encounter Plan of Treatment Upcoming Encounters Date Type Department Care Team (Late st Contact Info) Description 09/08/2024 10:00 AM EDT Office Visit [facility] [address] [place] [phone] Janel Lubin MD 100 [place] [address] 02/04/2025 9:00 AM EST Office Visit [facility] Sleep [address] [address] Mayra Franklin, MANAGER CREATIVE SERVICES [address] [place] [address] documented as of this encounter [...] on filedocumented in this encounter Care Teams Garage Door Service Technician Relationship Specialty Start Date End Date Janel Lubin MD 100 [place] [address] PCP - General Family Medicine 7/5/23 documented as of this encounter
--- OUTSIDE RECORDS SUMMARY | 2024-08-31 14:27 | XMS_ITS | Encounter Summary ---
Author Organization [place] [address] Care Team Providers Care Computer Network Support Specialist Name Role Phone Janel Lubin MD Primary Care Provider [phone] Reason for Visit * Reason Comments Medication Refill Encounter Details Date Type Department Care Team (Late st Contact Info) Description 06/30/2024 Refill SEP [facility] 100 [place] [address] Janel Lubin MD [address] [place] [address] Medication Refill Social History Tobacco Use Types [...] * Telephone Encounter - Nicolas White - 07/02/2024 12:57 PM EDT Select the most appropriate reason for this telephone message: Medication Refill Who is requesting the refill: Patient Medication(s)Name/Dosage/Frequency: phentermine (ADIPEX-P) 37.5 mg Oral Tablet [Pharmacy Med Name: PHENTERMINE 37.5 MG TABLET] 30 Tablet -- 07/02/2024 -- Request refused: Patient needs an appointment Sig - Route: TAKE 1 TABLET BY MOUTH EVERY MORNING BEFORE BREAKFAST - Oral Did patient contact the pharmacy first: No How many days left on hand: 0 Future appt date w/ prescribing provider: 07/14 Pharmacy & Location: [facility] [id number] [place] [address] [address] [place] [address] [[id number]] Return Method of Communication: Phone Call Additional Information: Per pt stating has appt pn 07/14, pt is out of medication and requesting a partial refill. documented in this encounter Plan of Treatment Upcoming Encounters Date Type Department Care Team (Late st Contact Info) Description 09/08/2024 10:00 AM EDT Office Visit [facility] 100 [place] [address] Janel Lubin MD [address] [place] [address] 02/04/2025 9:00 AM EST Office Visit [facility] [address] [address] Mayra Franklin, BAND BIAS MACHINE OPERATOR [address] [place] [address] documented as of this encounter [...] obesity documented in this encounter Care Teams Computer Network Support Specialist Relationship Specialty Start Date End Date Janel Lubin MD [address] [place] [address] PCP - General Family Medicine 09/29/22 documented as of this encounter
--- NOTE | 2024-08-31 14:28 | XR_ITS ---
FINAL REPORT CLINICAL HISTORY: pain in right knee x 2 weeks, no known trauma FINDINGS: AP, lateral and oblique views of the right knee were obtained. There is no prior exam for comparison. There is no acute osseous abnormality of the right knee. There is degenerative joint disease. The soft tissues are normal. There is no joint effusion. IMPRESSION: Degenerative joint disease. Reviewed, Interpreted and Dictated by Karla Cote MD Transcribed by Ayla Scott Authenticated and [facility]
== END 2024-08-31 23:59 | disposition home or self-care (01) ==
LOC: RAD 14:24
PROVIDERS: PCP Family Medicine; Visit Provider Nurse Practitioner
DX: M17.11 Unilateral primary osteoarthritis, right knee (principal)
CPT/HCPCS: 73562

== ENCOUNTER 2024-11-19 15:04 | Emergency (ER) | payer OTHER, BC, SELFPAY ==
--- OUTSIDE RECORDS SUMMARY | 2017-11-10 13:00 | XMS_ITS | Encounter Summary ---
Author Organization [facility] Address [address], [address] [place] [address] Care Team Providers Care Manager Lab Name Role Phone Hilario Zapata DO Primary Care Provider Unavailable Encounter Details Date Type Department Care Team (Late st Contact Info) Description 11/10/2017 1:00 PM EDT Hospital Encounter [facility] [address] [facility], [address] [place] [phone] Paulo Burch MD [address] [facility] [address] [place] [address] Social History Tobacco Use Types Packs/Day Years [...] DIAGNOSTIC SLEEP STUDY (11/30/2017 12:23 PM EDT) [facility] SLEEP CENTER ORDERABLES Final Re sult documented in this encounter Visit Diagnoses Not on filedocumented in this encounter Care Teams Manager Lab Relationship Specialty Start Date End Date Hilario Zapata DO PCP - General Family Medicine 03/14/15 04/30/18 documented as of this encounter
--- OUTSIDE RECORDS SUMMARY | 2024-11-03 10:15 | XMS_ITS | Encounter Summary ---
Author [place] [address] Care Team Providers Care Director Of Emergency Nursing Name Role Phone Janel Lubin MD Primary Care Provider [phone] Reason for Referral * Consultation (Routine) - Authorization Not Needed Specialty Diagnoses / Procedures Referred By Contac t Referred To Contact Obstetrics and Gynecology Diagnoses Cervical cancer screening Procedures NE OFFICE/OUTPATIENT NEW MODERATE MDM 45 MINUTES Janel Lubin MD [address] [place] [address] Phone: tel: fax: [facility] [address] [place] [phone] Phone: tel: fax: Referral ID Status Reason Start Date Expiration Date Visits Requested Visits Authorized [id number] Authorization Not Needed 11/03/2024 11/03/2025 99 99 Question Answer Is this for an abnormal pap? No * Mammography (Routine) - Pending Review Specialty Diagnoses / Procedures Referred By Contac t Referred To Contact Radiology Diagnoses Visit for screening mammogram Procedures MM MAMMO DIGITAL MELE SCREEN BILAT Janel Lubin MD [address] [place] [address] Phone: tel: fax: Referral ID Status Reason Start Date Expiration Date V isits Requested Visits Authorized [id number] Pending Review 11/03/2024 11/03/2026 1 1 Reason for Visit * Reason Comments Follow-up weight management Encounter Details Date Type Department Care Team (Late st Contact Info) Description 11/03/2024 10:15 AM EDT Office Visit [facility] [address] [place] [phone] Janel Lubin MD [address] [place] [address] Obesity, Class III, BMI 40-49.9 (morbid obesity) (Primary Dx); Vitamin B 12 deficiency; Visit for screening mammogram; Cervical cancer screening; Migraine without aura and without status migrainosus, not intractable; Obstructive sleep apnea; Major depressive disorder, recurrent, mild; Hyperlipidemia with target LDL less than 100; Essential hypertension Social History Tobacco Use Types Packs/Day Years [...] Sign Reading Time Taken Comments Blood Pressure 118/78 11/03/2024 10:40 AM EDT Pulse - - Temperature 37 C (98.6 F) 11/03/2024 10:40 AM EDT Respiratory Rate - - Oxygen Saturation - - Inhaled Oxygen Concentration - - Weight 98.2 kg (216 lb 8 oz) 11/03/2024 10:40 AM EDT Height 154.9 cm (5' 1 ) 11/03/2024 10:40 AM EDT Body Mass Index 40.91 11/03/2024 10:40 AM EDT documented in this encounter Functional Status * Is the person deaf or does he/she have serious difficulty hearing? Answer Date of Assessment Author No 04/26/2024 4:24 PM Nayla Salazar RMA * Is the person blind or does he/she have serious difficulty seeing even when wearing glasses? Answer Date of Assessment Author No 04/26/2024 4:24 PM Nayla Salazar Rosa, ROMMEL * Does this person have serious difficulty walking or climbing stairs? Answer Date of Assessment Author No 04/26/2024 4:24 PM Nayla Salazar Rosa, ROMMEL * Does this person have difficulty dressing or bathing? Answer Date of Assessment Author No 04/26/2024 4:24 PM Lilly Salazaradan Lee ROMMEL * Because of a physical, mental or emotional condition, does this person have difficulty doing errands alone such as visiting a doctor's office or shopping? Answer Date of Assessment Author No 04/26/2024 4:24 PM Lilly Salazaradan Lee ROMMEL documented as of this encounter Mental Status * Because of a physical, mental or emotional condition, does this person have serious difficulty concentrating, remembering or making decisions? Answer Entry Date Author No 04/26/2024 4:24 PM DELONTE Negro Naylaadan Lee ROMMEL documented in this encounter Ordered Prescriptions Prescription Sig Dispense Quantity Refills Last Filled Start Date End Date phentermine (ADIPEX-P) 37.5 mg Oral TabletIndications: Obesity, Class III, BMI 40-49.9 (morbid obesity) Take 1 Tablet by mouth every morning (before breakfast) for 30 days. 30 Tablet 11/03/2024 documented in this encounter Progress Notes * Janel Lubin MD - 11/03/2024 10:15 AM EDT Assessment & Plan 1. Knee pain. - Reports having good and bad days with knee pain, sometimes being unable to walk. - agriculture specialist suggested starting with a few injections but advised against continuous usedue to potential bone deterioration. - Specialist mentioned the possibility of using Synvisc in the future. - Prescription for current medication will be sent to pharmacy. 2. Vitamin B12 deficiency. - Requested a B12 injection during the visit. - B12 injection will be administered today. - No further physical exam findings or test results discussed. - No additional medications or therapies prescribed. Dx/Orders: Diagnoses and all orders for this visit: Obesity, Class III, BMI 40-49.9 (morbid obesity) (Chronic) - phentermine (ADIPEX-P) 37.5 mg Oral Tablet; Take 1 Tablet by mouth every morning (before breakfast) for 30 days. Dispense: 30 Tablet; Refill: 0 Vitamin B 12 deficiency - cyanocobalamin injection 1,000 mcg Visit for screening mammogram - MM MAMMO DIGITAL MELE SCREEN BILAT; Future Cervical cancer screening - AMB REFERRAL TO [facility] Migraine without aura and without status migrainosus, not intractable Obstructive sleep apnea Major depressive disorder, recurrent, mild Hyperlipidemia with target LDL less than 100 Essential hypertension No follow-ups on file. Subjective Ayla Owens is a 53 y.o. female Chief Complaint Patient presents with Follow-up weight management Follow-up This is a new problem. The current episode started today. Associated symptoms include arthralgias. Pertinent negatives include no coughing. History of Present Illness The patient presents for knee pain. She reports experiencing intermittent knee pain, with some days being more severe than others. On certain days, the pain is so intense that it hinders her ability to walk. She has consulted an fire management specialist twice, who suggested starting injections but cautioned against their continued use due to potential bone deterioration. The specialist recommended trying one or two injections and thenconsidering Synvisc treatment. She is also seeking a B12 injection during this visit. Review of Systems Constitutional: Positive for unexpected weight change. HENT: Negative. Respiratory: Negative for cough and wheezing. Cardiovascular: Negative. Gastrointestinal: Negative. Genitourinary: Negative. Musculoskeletal: Positive for arthralgias. Psychiatric/Behavioral: Negative. Objective Blood pressure 118/78, temperature 98.6 ??F (37 ??C), temperature source Forehead, height 5' 1 (1.549 m), weight 216 lb 8 oz (98.2 kg), not currently . Body mass index is 40.91 kg/m??. Physical Exam Respiratory: Clear to auscultation, no wheezing, rales or rhonchi Physical Exam Vitals and nursing note reviewed. Constitutional: Appearance: She is obese. Cardiovascular: Rate and Rhythm: Normal rate. Heart sounds: No murmur heard. Pulmonary: Effort: Pulmonary effort is normal. Breath sounds: No wheezing. Abdominal: Palpations: Abdomen is soft. Neurological: General: No focal deficit present. Mental Status: She is alert. Psychiatric: Mood and Affect: Mood normal. Results The provider educated the patient (or legal mortician supplies sales representative) on the use of the ambient listening artificial intelligence tool, [employer] Copilot. They were informed that this AI tool processes the conversation to generate a clinical note with the expected benefit of improved accuracy while achieving an improved encounter experience for the patient and provider.?The provider explained that the medical information captured by the AI tool including, but not limited to, diagnoses and treatment plan would be protected in accordance with applicable privacy laws and that all diagnoses and treatment decisions would be made by the provider. The provider explained that the note generated will be reviewed bythe provider for accuracy to minimize potential errors.? The patient was given an opportunity to ask questions and opt out of proceeding with the use of the AI tool. After being informed of such information, the patient (or legal mortician supplies sales representative), and each individual in attendance with the patient, verbally consented to the use of the AI tool. documented in this encounter Plan of Treatment Upcoming Encounters Date Type Department Care Team (Late st Contact Info) Description 02/04/2025 9:00 AM EST Office Visit [facility] [address] [phone] Mayra Franklin, DEVUL[employer]IZER TENDER [address] [place] [address] Scheduled Orders Name Type Priority Associated Diagnoses Orde r Schedule MM MAMMO DIGITAL MELE SCREEN BILAT Imaging Routine Visit for screening mammogram 1 Occurrences starting 11/03/2024 until 11/03/2026 Scheduled Referrals Name Type Priority Associated Diagnoses Orde r Schedule AMB REFERRAL TO [facility] Outpatient Referral Routine Cervical cancer screening Ordered: 11/03/2024 documented as of this encounter Goals Goal Patient Goal Type Associated Problems Recent Progress Patient-Stated? Author Blood Pressure < 140/90 Blood Pressure 118/78(2024 10:40 AM EDT) No Janel Lubin MD Maintain a healthy diet, exercise regularly and maintain an ideal body weight General No Nayla Negro RMA documented as of this encounter Visit Diagnoses Diagnosis Obesity, Class III, BMI 40-49.9 (morbid obesity)- Primary Morbid obesity Vitamin B 12 deficiency Other B-complex deficiencies Visit for screening mammogram Other screening mammogram Cervical cancer screening Screening for malignant neoplasm of the cervix Migraine without aura and without status migrainosus, not intractable Migraine without aura, without mention of intractable migraine without mention of status migrainosus Obstructive sleep apnea Obstructive sleep apnea (adult) (pediatric) Major depressive disorder, recurrent, mild Major depressive disorder, recurrent episode, mild Hyperlipidemia with target LDL less than 100 Other and unspecified hyperlipidemia Essential hypertension Unspecified essential hypertension documented in this encounter Administered Medications Inactive Administered Medications - up to 1 most recent administrations Medication Order MAR Action Action Date Dose Rate Site cyanocobalamin injection 1,000 mcg 1,000 mcg, Intramuscular, ONCE, 1 dose, On 11/03/24 at 1045, Dx: 1. Vitamin B 12 deficiencyIndications:Vitam in B 12 deficiency Given 11/03/2024 11:18 AM EDT 1,000 mcg Right Arm documented in this encounter Orders Medications Ordered That Bruce ht Not Have Been Administered Count Last Ordered Date First Ordered Date cyanocobalamin injection 1,000 mcg 1 2024 documented in this encounter Care Teams Director Of Emergency Nursing Relationship Specialty Start Date End Date Janel Lubin MD [address] [place] [address] PCP - General Family Medicine 09/29/22 documented as of this encounter
--- NOTE | 2024-11-19 15:12 | ED_ITS ---
<Statement entered by Marla Ragland DO - 11/20/24 20:35> I was consulted by the IMER, and we discussed the complexity of problems being addressed. I approve the treatment and management plan for this patient's care in the emergency department, thus performing a substantial portion of the medical decision making. Marla Ragland DO Discharge Plan Disposition Patient Disposition: Home, Self-Care Condition: Good Prescriptions Prescriptions: No Action phentermine [Adipex-P] 37.5 mg tablet 37.5 mg PO DAILY Rx Instructions: must administer 30 minutes before or 1-2 hours after breakfast meloxicam 7.5 mg tablet 7.5 mg PO DAILY Qty: 30 2RF cholecalciferol (vitamin D3) 125 mcg (5,000 unit) capsule 125 mcg PO DAILY valsartan 40 mg tablet 40 mg PO DAILY atorvastatin 40 mg tablet 40 mg PO DAILY Referrals Follow up/Referrals: Janel Lubin [Primary Care Provider, Medical] - See instructions Fransisco Brownlee II, MD [Staff Physician, Gastroenterology] - See instructions Activity Restrictions/Add. Instructions Additional Instructions/Restrictions: Please follow-up with your family doctor and GI doctor for MRI of your pancreas, please return to the emergency department with any worsening signs or symptoms to include nausea vomiting worsening pain blood in your stool or urine. I recommend ibuprofen and Tylenol as needed for symptomatic relief. Clinical Impressions Clinical Impression: Left flank pain, Cystic mass of pancreas Instructions Patient Instructions: DI for Abdominal Pain-Adult, DI for Flank Pain Print Language Print Language: Martiniquais Discharge ED Provider: Marla Ragland General Adult HPI General Chief complaint: PAIN Stated complaint: Poss kidney stone, L side pain Time Seen by Provider: 11/19/24 15:06 Mode of Arrival: Ambulatory Source of Information: Patient Limitations: No Limitations History of Present Illness HPI narrative: 53-year-old female presents the emergency department with left-sided flank pain that has been waxing and waning for the last 1 to 2 weeks, no trauma or injury per history, denies any fever chills chest pain shortness of breath no nausea no vomiting no constipation no diarrhea no melena hematochezia no hematemesis, no radicular type symptomatology, no numbness or tingling, no saddle anesthesia, no urinary bladder or bowel dysfunction, urinary type symptomatology, denies any vaginal bleeding no vaginal discharge, no vaginal irritation, no recent sexual contact/risky sexual behaviors patient is a non-smoker denies any alcohol or drug use, other past medical history is consistent with hypertension, hyperlipidemia, and previous nephrolithiasis. Patient states this feels similar to my previous kidney stones . Initial triage vitals are unremarkable. She has been taking NSAIDs for this pain with some relief to her symptomatology. Please note that above description of symptoms, in this electronic medical record under categorization of recalled from ER triage doctor by RN are reflective of an initial nursing assessment, however, is not reflective of my full history and physical exam that was personally taken and clarified. Consequentially, this preceding description of symptoms, which may include the patient's categorized chief complaint in the EMR, do not reflect my personal clinical impression, and the ultimate description of history of present illness and patient stated complaints should be deferred to this section of the note. Unless stated otherwise or congruent with this section of the note, additional signs, symptoms, or incongruence should be interpreted as inaccurate with my clinical impression. Onset (ago): week(s) Related Data Home Medications ?Medication ?Instructions ?Recorded ?Confirmed atorvastatin 40 mg tablet 40 mg PO DAILY 05/14/2208/27 cholecalciferol (vitamin D3) 125 125 mcg PO DAILY 04/2809/17/24 mcg (5,000 unit) capsule valsartan 40 mg tablet 40 mg PO DAILY 05/14/2208/27 phentermine 37.5 mg tablet 37.5 mg PO DAILY 09/17/24 0 09/17/24 (Adipex-P) Previous Rx's ?Medication ?Instructions ?Recorded meloxicam 7.5 mg tablet 7.5 mg PO DAILY #30 tabs Allergies Allergy/AdvReac Type Severity Reaction Status Date / Time codeine Allergy Verified 09/17/24 10:21 [facility] Disclaimer: The information contained in this section may have been updated after the patient was seen, as this information can be updated by other users. Medical History Knee pain HLD (hyperlipidemia) HTN (hypertension), benign Depression Anxiety Surgical History H/O tubal ligation Family History Other Alcoholism Cancer Coronary artery disease Heart attack Kidney disease Stroke Social History Smoking Status: Never smoker alcohol intake: never current occupational status: employed Travel in the last 8 weeks?: None Have you lived/traveled outside US in past 30 days?: No Contact w/someone who lives/traveled outside US past 30 days?: No Exposure to someone with infectious disease in past 14 days?: No Do you have a fever (greater than 100.4 F or 38 C)?: No Have you tested positive for COVID-19?: No Exposed to someone with COVID-19 in past 14 days?: No Do you have a sore throat?: No Do you have a cough?: No Do you have any weakness?: No Do you have any diarrhea?: No Are you experiencing any unusual bleeding?: No Do you have any muscle aches/pain?: No Do you have any abdominal pain?: No Are you experiencing loss of taste or smell?: No Other Medical History Have you received the Pneumonia Vaccine: No ROS Obtained: Yes All systems reviewed & no additional complaints except as documented Physical Exam General General appearance: alert and in no apparent distress Head Head exam: atraumatic and normocephalic Eye Eye exam: Present PERRL and EOMI ENT ENT exam: Present mucous membranes moist Neck Neck exam: Present normal inspection Chest Chest inspection: Present normal inspection and symmetric chest wall rise Respiratory Respiratory exam: Present normal lung sounds bilaterally; Absent respiratory distress Cardiovascular Cardiovascular exam: Present regular rate and normal rhythm Abdominal Exam Abdominal exam: Present soft; Absent tenderness, guarding, rebound or rigidity Extremities Exam Extremities exam: Present normal inspection Back Exam Back exam: Present CVA tenderness (L); Absent paraspinal tenderness or vertebral tenderness Comment: Very minimal left-sided CVA tenderness to palpation Neurological Exam Neurological exam: Present alert and oriented X3 Psychiatric Psychiatric exam: Present normal affect Skin Skin exam: Present warm and dry Medical Decision Making Medical Records Medical records reviewed: Yes I reviewed the patient's medical records. Screening: Per USPSTF and CDC recommendations, given the prevalence of disease in our region, it is our hospital?s policy to screen for HIV and viral Hepatitis for all patients aged 18 and over and those with ongoing risk factors. Navarro Inquiry Pt receiving controlled substance: No Navarro was queried for this patient: No Vital Signs: 11/19/24 15:25 Temperature 98.2 F Temperature Source Oral Pulse Rate [Right Radial] 88 Respiratory Rate 18 Blood Pressure [Right Arm] 154/94 H Blood Pressure Mean [Right Arm] 114 Blood Pressure Source [Right Arm] Automatic Cuff Blood Pressure Position [Right Arm] Sitting 02 Sat by Pulse Oximetry 99 Oxygen Delivery Method Room Air Lab Data Lab results reviewed: Yes I reviewed the patient's lab results. Lab Results 11/19/24 15:08: Urine Color Dark yellow, Urine Appearance Slightly cloudy, Urine pH 5.5, Ur Specific [place] >= 1.030, Urine Protein Negative, Urine Glucose (UA) Negative, Urine Ketones Negative, Urine Blood Negative, Urine Nitrate Negative, Urine Bilirubin Negative, Urine Urobilinogen 2.0, Ur Leukocyte Esterase Negative, Urine RBC None, Urine WBC Occasional, Ur Squamous Epith Cells Occasional, Calcium Oxalate Crystal Trace, Urine Bacteria Trace 11/19/24 15:22: WBC 8.0, RBC 4.72, Hgb 13.5, Hct 41.4, MCV 87.7, MCH 28.6, MCHC 32.6, RDW 13.3, Plt Count 353, MPV 10.3, Neut % (Auto) 69.4, Lymph % (Auto) 20.5, [place] % (Auto) 6.4, Eos % (Auto) 2.9, Baso % (Auto) 0.4, Neut # (Auto) 5.6, Lymph # (Auto) 1.6, [place] # (Auto) 0.5, Eos # (Auto) 0.2, Baso # (Auto) 0.0, Sodium 139, Potassium 4.3, Chloride 105, Carbon Dioxide 26, Anion Gap 12.3, BUN 23 H, Creatinine 0.80, Estimated Creat Clear 60, Estimated GFR 74, Est GFR ( Amer) 90, Glucose 99, Calcium 9.0, Total Bilirubin 0.8, AST 32, ALT 29, Alkaline Phosphatase 122, Total Protein 6.8, Albumin 4.0, Globulin 2.8, Albumin/Globulin Ratio 1.4 11/19/24 15:34: Lactate 1.0 11/19/24 15:22 11/19/24 15:22 Orders (Tests/Meds): ED MEDICATIONS Discontinued Medications Generic Name Dose Route Start Last Admin Trade Name Freq PRN Reason Stop Dose Admin Iopamidol 75 ml 08/25/25 16:15 11/19/24 16:16 Iopamidol-370 (76%);100ml Bottle IV 11/19/24 16:16 75 ml ONCE ONE Administration Ketorolac Tromethamine 15 mg 11/19/24 15:34 11/19/24 15:38 Ketorolac 15mg/Ml Vial IV 11/19/24 15:35 15 mg ONCE ONE Administration Sodium Chloride 10 ml 11/19/24 16:15 11/19/24 16:16 Sodium Chloride 0.9% 10ml Syr (Rad Only) IV 11/19/24 16:16 10 ml ONCE ONE Administration ORDERS Category Date Time Status CT abdomen pelvis w con Stat Cat Scan 11/19/24 15:33 Completed Complete Blood Count Auto Diff Stat Lab 11/19/24 15:22 Completed Comprehensive Metabolic Panel Stat Lab 11/19/24 15:22 Completed Lactic Acid Stat Lab 11/19/24 15:34 Completed Lipase Stat Lab 11/19/24 15:22 Received Urinalysis and Microscopic Stat Lab 11/19/24 15:08 Completed Medical Decision Narrative: 53-year-old female presents the emergency department left-sided flank pain, for 1 to 2 weeks, differential diagnose include but not limited to acute UTI, acute pyelonephritis, other musculoskeletal pain, acute lumbar sacral strain, nephrolithiasis, ureterolithiasis, among others. I discussed the patient's case with the attending physician Dr. Ragland Will obtain basic laboratory studies, lipase, lactic acid level, UA, CT and pelvis with contrast, will give 15 mg IV Toradol for pain. CBC unremarkable CMP is noted for minimal BUN elevation 23, lactic acid level within normal. Urinalysis is notable for trace bacteria, trace calcium oxalate crystals, no hematuria no nitrites no leukocyte Estrace. I reviewed the patient's CT abdomen pelvis with contrast along the corresponding radiologic report, there is a 2 x 7 x 2.2 cm cystic lesion in the pancreatic head/neck incompletely characterized on the exam, follow-up MRI of the abdomen with and without contrast, pancreatic protocol is recommended, question mild left hydronephrosis versus peripelvic cyst, no obstructive left renal stones or significant left perinephric inflammation, consider correlation with ultrasound or CT urogram for adequate characterization, 2.5 cm lobulated nodular structure in the right infrahilar region right lower lobe incompletely characterized on exam, consider follow-up CT chest with contrast otherwise no acute findings in the abdomen pelvis. I discussed these results with the patient at the bedside, patient is in agreement with the current discharge plan/treatment plan, with minimal hydronephrosis, and calcium oxalate crystals in the urine, patient could have passed a recent kidney stone, versus musculoskeletal pain versus cystic lesion pain from incidentally found pancreatic head cystic lesion, patient was given strict ED return precautions recommend follow-up with PCP/GI physician for MRI of the abdomen pancreas protocol for further evaluation, patient voiced understanding and agreement with the current treatment plan/discharge plan. Critical Care Critical Care Time Critical Care Time: No
--- OUTSIDE RECORDS SUMMARY | 2024-11-19 15:13 | XMS_ITS | Encounter Summary ---
Author Organization [place] [address] Care Team Providers Care Satellite Project Site Monitor Name Role Phone Janel Lubin MD Primary Care Provider [phone] Reason for Visit * Reason Onset Date Comments Patient Question 09/24/2024 Encounter Details Date Type Department Care Team (Late st Contact Info) Description 09/24/[address] [facility] Sleep Medicine [address] [address] Shannon Salas MA Patient Question Social History Tobacco Use Types Packs/Day Years [...] of Assessment Author No 04/26/2024 4:24 PM Nayal Salazar RMA documented as of this encounter Mental Status * Because of a physical, mental or emotional condition, does this person have serious difficulty concentrating, remembering or making decisions? Answer Entry Date Author No 04/26/2024 4:24 PM Nayla Salazar RMA documented in this encounter Miscellaneous Notes * Telephone Encounter - Marla Toro MA - 09/24/2024 9:18 AM EDT Was able to turn pressure down from 13 to 11 remotely for her. LVM to let pt know. * Telephone Encounter - Shannon Salas MA - 09/24/2024 9:00 AM EDT Pt called and said machine is pushing air to hard she wants to know if it can be turned down. Pt isat work and said to leave a message if you are able to do that. Pt is not allowed to take calls during work but said she is available early in the mornings I told if we can turn the pressure down we can leave a message If they are not able to they can call and leave that message as well and go fromthere. documented in this encounter Plan of Treatment Upcoming Encounters Date Type Department Care Team (Late st Contact Info) Description 02/04/2025 9:00 AM EST Office Visit [facility] [address] [address] Mayra Franklin, HANDMADE TILE ARTIST [address] [place] [address] documented as of this encounter [...] on filedocumented in this encounter Care Teams Satellite Project Site Monitor Relationship Specialty Start Date End Date Janel Lubin MD [address] [place] [address] PCP - General Family Medicine 09/29/22 documented as of this encounter
--- OUTSIDE RECORDS SUMMARY | 2024-11-19 15:13 | XMS_ITS | Encounter Summary ---
Author Organization [place] [address] Care Team Providers Care Farm Supervisor Name Role Phone Janel Lubin MD Primary Care Provider [phone] Reason for Visit * Reason Comments Medication Refill Encounter Details Date Type Department Care Team (Late st Contact Info) Description 11/09/2024 Refill [facility] [address] [place] [address] Janel Lubin MD [address] [place] [id number] Medication Refill Social History Tobacco Use Types [...] No 04/26/2024 4:24 PM EST Nayla Negro ROMMEL * Because of a physical, mental or emotional condition, does this person have difficulty doing errands alone such as visiting a doctor's office or shopping? Answer Date of Assessment Author No 04/26/2024 4:24 PM EST Nayla Negro Rosa ROMMEL documented as of this encounter Mental Status * Because of a physical, mental or emotional condition, does this person have serious difficulty concentrating, remembering or making decisions? Answer Entry Date Author No 04/26/2024 4:24 PM Nyala Salazar Rosa ROMMEL documented in this encounter Ordered Prescriptions Prescription Sig Dispense Quantity Refills Last Filled Start Date End Date buPROPion (WELLBUTRIN XL) 300 mg Oral Tablet Sustained Release 24 hrIndications:Obes ity, Class III, BMI 40-49.9 (morbid obesity),Major depressive disorder, recurrent, mild TAKE 1 TABLET BY MOUTH EVERY MORNING 100 Tablet 1 11/09/2024 documented in this encounter Miscellaneous Notes * Telephone Encounter - Geeta Plaza CPhT - 11/09/2024 2:19 PM EDT Bupropion Future Visit: N/A Last Assessed Visit: 11/03/24 Follow-Up Date: 05/06/25 All protocols passed. Refills approved and sent to requesting pharmacy. Routed to [facility] if an appointment is needed. documented in this encounter Plan of Treatment Upcoming Encounters Date Type Department Care Team (Late st Contact Info) Description 02/04/2025 9:00 AM EST Office Visit [facility] [address] [address] Mayra Franklin, SALVAGE LABORER [address] [place] [address] documented as of this encounter Goals Goal Patient Goal Type Associated Problems Recent Progress Patient-Stated? Author Blood Pressure < 140/90 Blood Pressure 118/78(2024 10:40 AM EDT) Janel Greco MD Maintain a healthy diet, exercise regularly and maintain an ideal body weight General No Nayla Negro, [facility] documented as of this encounter Visit Diagnoses Diagnosis Obesity, Class III, BMI 40-49.9 (morbid obesity) Morbid obesity Major depressive disorder, recurrent, mild Major depressive disorder, recurrent episode, mild documented in this encounter Discontinued Medications Medication Sig Discontinue Reason Start Date End Da te buPROPion (WELLBUTRIN XL) 300 mg Oral Tablet Sustained Release 24 hrIndications:Obesity, Class III, BMI 40-49.9 (morbid obesity),Major depressive disorder, recurrent, mild TAKE 1 TABLET BY MOUTH EVERY MORNING 06/11/2024 11/09/2024 documented as of this encounter Care Teams Farm Supervisor Relationship Specialty Start Date End Date Janel Lubin MD [address] [place] [address] PCP - General Family Medicine 09/29/22 documented as of this encounter
--- OUTSIDE RECORDS SUMMARY | 2024-11-19 15:13 | XMS_ITS | Clinical Summary ---
Author Organization [facility] Address [address] [place] [address] Care Team Providers Care Slitter Operator Name Role Phone Levy Hoffman MD Primary Care Provider [phone] Social History Tobacco Use Types Packs/Day Years Used Date Smoking Tobacco: Never Assessed Comments Unknown Sex and Gender Information Value Date Recorded Sex Assigned at Not on file Legal Sex Female 6:20 PM EST Gender Identity Not on file Sexual Orientation Not on file Plan of Treatment Not on file Insurance ANTHEM Member Subscriber Plan / Payer (Ef fective for All Dates) Name:Ayla Davey Relation to Subscriber:Spouse Name:AURORA DAVEY Date of :1966 (Home) [address] [facility] [place] [address] Payer ID:[id number] (NAIC) Type:PPO Address: [facility] [id number] [place] [id number] Care Teams Slitter Operator Relationship Specialty Start Date End Date Levy Hoffman MD PCP - General 10/29/08
--- OUTSIDE RECORDS SUMMARY | 2024-11-19 15:13 | XMS_ITS | Encounter Summary ---
Author Organization [facility] Address [facility] [place] [address] Phone Care Team Providers Care Insurance Account Representative Name Role Phone Janel Lubin MD Primary Care Provider Reason for Referral * Other (Routine) - Closed Specialty Diagnoses / Procedures Referred By Contac t Referred To Contact Diagnoses Visit for screening mammogram Procedures ANA CRISTINA SCR BILAT MELE ANA CRISTINA SCR BILAT Janel Lubin MD Phone: tel: fax: Referral ID Status Reason Start Date Expiration Date V isits Requested Visits Authorized [id number] Closed Specialty Services Required 03/30/2023 03/29/2024 1 1 Encounter Details Date Type Department Care Team (Late st Contact Info) Description 03/30/2023 Orders Only [facility] Central Scheduling [address] [place] [address] Janel Lubin MD [address] [place] [address] Visit for screening mammogram (Primary Dx) Social [...] mammogram documented in this encounter Care Teams Insurance Account Representative Relationship Specialty Start Date End Date Janel Lubin MD PCP - General Family Medicine 11/12/22 documented as of this encounter
--- OUTSIDE RECORDS SUMMARY | 2024-11-19 15:13 | XMS_ITS | Clinical Summary ---
Author Organization [facility] Address [address] [place] [address] Phone Care Team Providers Care Manufacturing Teacher Name Role Phone Janel Lubin MD Primary Care Provider Allergies Active Allergy Reactions Criticality Noted Date [...] Shingrix (#1) 2018 Mammogram Screening 02/12/2023 02/12/2022 Influenza Vaccine (#1) 2024 4, 04/12/2023, 01/28/2022 RSV Vaccine (60+ or ) (1 - 1-dose 75+ series) 12/26/2043 HPV Aged Out No longer eligi ble based on patient's age to complete this topic Meningococcal conjugate cedric nt 4 (MCV4) Aged Out No longer eligible b ased on patient's age to complete this topic RSV Immunization (<20 months) Aged Out No longer eligible based on patient's age to complete this topic Procedures Procedure Name Priority Date/Time Associated Diagnosis Comments [facility] SCR [facility]ILAT Routine 02/12/2022 9:27 AM EST Encounter for screening mammogram for malignant neoplasm of breast from Last 3 Months or Most Recently Relevant to Health Maintenance Results * [facility] SCR BILAT (02/12/2022 9:27 AM EST) Anatomical Region Laterality Modality Chest Bilateral Mammography 02/12/2022 2:29 PM EST Impressions 02/12/2022 2:31 PM EST No mammographic evidence of malignancy CATEGORY BI-RADS: 2: Benign MANAGEMENT: Routine annual mammography unless otherwise clinically indicated NOTE: If additional imaging is recommended, the Breast Center will contact the patient directly to coordinate that appointment, or scheduling can be reached at [phone]. RISK ASSESSMENT: A preliminary breast cancer risk assessment was conducted as part of the patient?s screening mammogram. Patients with a preliminarily elevated screening score who are interested in further information are encouraged to contact our High Risk Navigator at [phone], or provider can place a referral to the high risk breast program, [id number]. Patient's lifetime Gretel model risk: 8.37% (20% and greater considered high risk) [facility] Family History Risk Score: not [...] nonsurgical architectural distortion identified. Antolin Whitaker MD [facility] Final Resu lt from Last 3 Months or Most Recently Relevant to Health Maintenance Insurance ALL OTHERS NOT MEDICARE [address] [id number] Care Teams Manufacturing Teacher Relationship Specialty Start Date End Date Janel Lubin MD PCP - General Family Medicine 11/12/22
--- OUTSIDE RECORDS SUMMARY | 2024-11-19 15:13 | XMS_ITS | Encounter Summary ---
Author Organization [place] [address] Care Team Providers Care Slip Mixer Name Role Phone Janel Lubin MD Primary Care Provider [phone] Reason for Visit * Reason Onset Date Comments Appointment Needed 08/15/2024 B12 shot Encounter Details Date Type Department Care Team (Late st Contact Info) Description 08/15/[address] [address] Janel Lubin MD [address] [place] [address] Appointment Needed (B12 shot) Social History Tobacco [...] Description 02/04/2025 9:00 AM EST Office Visit [facility] [place] [address] [address] Mayra Franklin, AUTOMOTIVE SERVICE PORTER [address] [place] [address] documented as of this encounter [...] on filedocumented in this encounter Care Teams Slip Mixer Relationship Specialty Start Date End Date Janel Lubin MD [address] [place] [address] PCP - General Family Medicine 09/29/22 documented as of this encounter
--- OUTSIDE RECORDS SUMMARY | 2024-11-19 15:13 | XMS_ITS | Encounter Summary ---
Author Organization [place] [address] Care Team Providers Care Driver Retraining Instructor Name Role Phone Janel Lubin MD Primary Care Provider [phone] Reason for Visit * Reason Comments Medication Refill Encounter Details Date Type Department Care Team (Late st Contact Info) Description 10/16/2024 Refill [facility] [address] [place] [address] Janel Lubin MD [address] [place] [id number] Medication Refill Social History Tobacco Use Types [...] No 04/26/2024 4:24 PM EST Nayla Negro RMA * Because of a physical, mental or emotional condition, does this person have difficulty doing errands alone such as visiting a doctor's office or shopping? Answer Date of Assessment Author No 04/26/2024 4:24 PM EST Nayla Negro RMA documented as of this encounter Mental Status * Because of a physical, mental or emotional condition, does this person have serious difficulty concentrating, remembering or making decisions? Answer Entry Date Author No 04/26/2024 4:24 PM EST Nayla Negro RMA documented in this encounter Miscellaneous Notes * Telephone Encounter - Madai Mcdermott CPhT - 10/18/2024 6:29 AM EDT bupropion - Refill requested too soon. Refill denied. Last sent on 06/11/2024 for a 100 day supply with 1 refills. Pt notified via [employer] if active. documented in this encounter Plan of Treatment Upcoming Encounters Date Type Department Care Team (Late st Contact Info) Description 02/04/2025 9:00 AM EST Office Visit [facility] [address] [address] Mayra Franklin, CHARGE GANG WEIGHER [address] [place] [address] documented as of this encounter [...] recurrent episode, mild documented in this encounter Care Teams Driver Retraining Instructor Relationship Specialty Start Date End Date Janel Lubin MD [address] [place] [address] PCP - General Family Medicine 09/29/22 documented as of this encounter
--- OUTSIDE RECORDS SUMMARY | 2024-11-19 15:13 | XMS_ITS | Referral Summary ---
Author Organization [facility] Address [address] [place] [address] Phone Care Team Providers Care Avionics Test Technician Name Role Phone Janel Lubin MD Primary Care Provider [phone] Allergies Active Allergy Reactions Criticality Noted Date [...] Procedure Name Priority Date/Time Associated Diagnosis Comments [facility] SCR BILAT Routine 02/12/2022 9:27 AM EST Encounter for screening mammogram for malignant neoplasm of breast from Last 3 Months or Most Recently Relevant to Health Maintenance Results * [facility] SCR BILAT (02/12/2022 9:27 AM [...] appointment, or scheduling can be reached at [phone]. RISK ASSESSMENT: A preliminary breast cancer risk assessment was conducted as part of the patient?s screening mammogram. Patients with a preliminarily elevated screening score who are interested in further information are encouraged to contact our High Risk Navigator at [phone], or provider can place a referral to the high risk breast program, [id number]. Patient's lifetime Gretel model risk: 8.37% (20% [...] architectural distortion identified. us Antolin Whitaker MD [facility] Final Resu lt from Last 3 Months or Most Recently Relevant to Health Maintenance Insurance [employer] ALL OTHERS NOT MEDICARE Care Teams Avionics Test Technician Relationship Specialty Start Date End Date Janel Lubin MD PCP - General Family Medicine 11/12/22
--- OUTSIDE RECORDS SUMMARY | 2024-11-19 15:13 | XMS_ITS | Encounter Summary ---
Author Organization [place] [address] Care Team Providers Care Hand Bander Name Role Phone Janel Lubin MD Primary Care Provider [phone] Encounter Details Date Type Department Care Team (Late st Contact Info) Description 06/19/2024 Refill [facility] [address] [place] [address] Janel Lubin MD [address] [place] [address] Social History Tobacco Use Types Packs/Day Years [...] Assessment Author No 04/26/2024 4:24 PM [place]TE Nayla Negro RMA documented as of this [...] 0 Future appt date w/ prescribing provider: [email or web address] Pharmacy & Location: [facility] [id number] [place] [address] [address] [phone] Return Method of Communication: Phone Call Additional Information: med pended please adv documented in this encounter Plan of Treatment Upcoming Encounters Date Type Department Care Team (Late st Contact Info) Description 02/04/2025 9:00 AM EST Office Visit [facility] [address] [address] Mayra Franklin, COMBAT INFORMATION CENTER OFFICER [address] [place] [address] documented as of this encounter Goals Goal Patient Goal Type Associated Problems Recent Progress Patient-Stated? Author Blood Pressure < 140/90 Blood Pressure 118/78(2024 10:40 AM EDT) No Janel Lubin MD Maintain a healthy diet, exercise regularly and maintain an ideal body weight General Nayla Rubalcava Shar documented as of this encounter Visit Diagnoses Diagnosis Obesity, Class III, BMI 40-49.9 (morbid obesity) Morbid obesity documented in this encounter Care Teams Hand Bander Relationship Specialty Start Date End Date Janel Lubin MD [address] [place] [address] PCP - General Family Medicine 09/29/22 documented as of this encounter
--- OUTSIDE RECORDS SUMMARY | 2024-11-19 15:13 | XMS_ITS | Encounter Summary ---
Author Organization [facility] Address [address], [address] [place] [address] Care Team Providers Care Transit Vehicle Inspector Name Role Phone Debra Rose MD Primary Care Provid er Reason for Visit * Reason Onset Date Comments Medication Problem 10/13/2017 Diuretic Encounter Details Date Type Department Care Team (Late st Contact Info) Description 10/13/2017 Refill [facility] [address] [place] [address] Hilario Zapata DO Medication Problem (Diuretic) Social [...] on filedocumented in this encounter Care Teams Transit Vehicle Inspector Relationship Specialty Start Date End Date Debra Rose MD PCP - General Internal Medicine 06/18/22 documented as of this encounter
--- OUTSIDE RECORDS SUMMARY | 2024-11-19 15:13 | XMS_ITS | Encounter Summary ---
Author Organization [facility] Address [address], [address] [place] [address] Care Team Providers Care Server Programmer Name Role Phone Debra Rose MD Primary Care Provid er Encounter Details Date Type Department Care Team (Late st Contact Info) Description 08/10/2017 Direct Admit Orders [address] [place], [place] [id number] Hilario Zapata DO Social History Tobacco Use [...] on filedocumented in this encounter Care Teams Server Programmer Relationship Specialty Start Date End Date eDbra Rose MD PCP - General Internal Medicine 06/18/22 documented as of this encounter
--- OUTSIDE RECORDS SUMMARY | 2024-11-19 15:13 | XMS_ITS | Clinical Summary ---
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 08/18/19 23 Active ondansetron (ZOFRAN-ODT) 4 mg Oral Tablet, Rapid Dissolve Take 1 Tablet by mouth every 4 hours as needed. 30 Tablet 3 09/30/19 23 Active fUROsemide (LASIX) 20 mg Oral Tablet Take 1 Tablet by mouth daily as needed. 30 Tablet 2 09/30/19 23 Active diclofenac (VOLTAREN) 1 % Top GelIndications :Chronic pain of both knees Apply 2 g topically 4 times daily. 300 g 3 07/15/19 24 Active naltrexone (REVIA) 50 mg Oral TabletIndicati ons:Obesity, Class III, BMI 40-49.9 (morbid obesity) Take 1 Tablet by mouth 2 times daily. 180 Tablet 3 11/23/19 24 Active atorvastatin (LIPITOR) 40 mg Oral Tablet TAKE ONE TABLET BY MOUTH ONCE NIGHTLY 100 Tablet 1 05/30/19 25 Active valsartan (DIOVAN) 160 mg Oral Tablet TAKE 1 TABLET BY MOUTH DAILY 100 Tablet 2 06/12/19 25 Active phentermine (ADIPEX-P) 37.5 mg Oral TabletIndicati ons:Obesity, Class III, BMI 40-49.9 (morbid obesity) Take 1 Tablet by mouth every morning (before breakfast) for 30 days. 30 Tablet 11/04/19 25 025 Active buPROPion (WELLBUTRIN XL) 300 mg Oral Tablet Sustained Release 24 hrIndications: Obesity, Class III, BMI 40-49.9 (morbid obesity),Major depressive disorder, recurrent, mild TAKE 1 TABLET BY MOUTH EVERY MORNING 100 Tablet 1 11/10/19 25 Active buPROPion (WELLBUTRIN XL) 300 mg Oral Tablet Sustained Release 24 hrIndications: Obesity, Class III, BMI 40-49.9 (morbid obesity),Major depressive disorder, recurrent, mild TAKE 1 TABLET BY MOUTH EVERY MORNING 100 Tablet 1 06/12/19 25 025 Discontinued Hospital, Clinic, or Other Facility Administered Medication Ordered Dose Route Frequency Start Date End Date Status cyanocobalamin injection 1,000 mcgIndications:Vitamin B 12 deficiency 1000 mcg IM ONCE 11/03/2024 11/03/2024 Ended Active Problems Problem Noted Date Diagnosed Date [...] Encounters Date Type Department Care Team Description 11/09/2024 Refill [facility] [address] [facility] [address] Janel Lubin MD Medication Refill 11/03/2024 10:15 AM EDT Office Visit [facility] [address] [place] [address] Janel Lubin MD Obesity, Class III, BMI 40-49.9 (morbid obesity) (Primary Dx); Vitamin B 12 deficiency; Visit for screening mammogram; Cervical cancer screening; Migraine without aura and without status migrainosus, not intractable; Obstructive sleep apnea; Major depressive disorder, recurrent, mild; Hyperlipidemia with target LDL less than 100; Essential hypertension 10/16/2024 Refill [facility] [address] [place] [address] Janel Lubin MD Medication Refill 09/24/2024 Telephone [facility] Sleep Medicine [facility] [address] [facility] Building [address] [place] [phone] Shannon Salas MA Patient Question 09/08/2024 10:00 AM EDT Office Visit [facility] [address] [place] [address] Janel Lubin MD Vitamin B 12 deficiency (Primary Dx); Obesity, Class III, BMI 40-49.9 (morbid obesity); Essential hypertension; Major depressive disorder, recurrent, mild from Last 3 Months Immunizations Immunization Administration [...] Mass Index 40.91 11/03/2024 10:40 AM EDT Plan of Treatment Upcoming Encounters Date Type Department Care Team (Late st Contact Info) Description 02/04/2025 9:00 AM EST Office Visit [facility] Sleep Medicine [address] [address] Mayra Franklin, 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 [address] [place] [address] Health Maintenance Due Date Last Done Comments Cervical Cancer Screening 1989 Pap Smear 1989 HPV/Pap Cotest 1998 Colonoscopy 2013 FIT 2013 Sigmoidoscopy 2013 Virtual Colonography 2013 Pneumococcal Vaccine 50+ (1 of 1 - PCV) 2018 Zoster (1 of 2) 2018 COVID-19 Vaccine (1 - season) 2023 Breast Cancer Screening 02/13/2024 02/13/20 22, 02/12/2022, 12/19/2020, Additional history exists Hepatitis B Vaccine (2 of 3 - 19+ 3-dose series) 08/20/2024 07/23/2024 Influenza Vaccine (#1) 2024 , 04/12/2023, 01/28/2022 Annual Wellness Exam 12/01/2024 12/02/2023 Cologuard 10/25/2025 10/25/2022, 10/25/2022 Colon Cancer Screening 10/25/2025 DTaP/TDaP/Td (2 - Td or Tdap) 07/23/2034 07/23/2024 Meningococcal B Vaccine Aged Out No l onger eligible based on patient's age to complete this topic Goals Goal Patient Goal Type Associated Problems Recent Progress Patient-Stated? Author Blood Pressure < 140/90 Blood Pressure 118/78(2024 10:40 AM EDT) Janel Greco MD Maintain a healthy diet, exercise regularly and maintain an ideal body weight General No Nayla Negro RMA Procedures Procedure Name Priority Date/Time Associated Diagnosis Comments COLOGUARD Routine 10/25/2022 10:05 PM EDT Screening for colon cancer HM MAMMOGRAPHY Routine 02/12/2022 12:03 PM EST from Last 3 Months or Most Recently Relevant to Health Maintenance Results * COLOGUARD (10/25/2022 10:05 PM EDT) COLOGUARD CLINICAL REPORT Negative Negative [facility] Comment: NEGATIVE TEST RESULT. A negative [...] Sawyer et al, N Engl J Med 2014;370(14):4808-4725) The normal value (reference range) for this assay is negative. COLOGUARD RE-SCREENING RECOMMENDATION: Periodic colorectal cancer screening is an important part of preventive healthcare for asymptomatic individuals at average risk for colorectal cancer. Following a negative Cologuard result, the [place] [employer] and U.S. Multi-Society Task Force screening guidelines recommend a Cologuard re-screening interval of 3 years. References: [place] [employer] Guideline for Colorectal Cancer Screening: https://www.cancer.org/cancer/kbrba-pictsq-mezvua/eqdsgbhoi-weuiinvxi-eioacoi/ac s-rec ommendations.html.; Haroldo GARY, Sven SANCHEZ, Mary NajeraK, Colorectal Cancer Screening: Recommendations for Physicians and Patients from the U.S. Multi-Society Task Force on Colorectal Cancer Screening , Am J Gastroenterology 2017; 112:5613-6854. TEST DESCRIPTION: Composite algorithmic analysis of stool [...] Sawyer et al, N Engl J Med 2014;370(14):9407-9275.) Cologuard may produce a false negative or false positive result (no colorectal cancer or precancerous polyp present at colonoscopy follow up). A negative Cologuard test result does not guarantee the absence of CRC or advanced adenoma (pre-cancer). The current Cologuard screening interval is every 3 years. ([place] [employer] and U.S. Multi-Society Task Force). Cologuard performance data in a 10,000 patient pivotal study using colonoscopy as the reference method can be accessed at the following location: www.[employer]/results. Additional description of the Cologuard test process, warnings and precautions can be found at www.colChegue.lárd.Existence Before Essence. Stool 10/25/2022 10:0 5 PM EDT 10/27/2022 5:56 PM EDT us Janel Lubin MD EXACT SCIENCE - ORDERABLES Fin al Result Performing Organization Address City/[facility] [address]/ZIP Co de Phone Number [employer], [facility] [address] [place] [address], [facility] [address] [place] [address] * HM MAMMOGRAPHY (02/12/2022 12:03 PM EST) Historical Provider Generic HEALTH MAINTENANCE F inal Result Performing Organization Address [facility] [address]/[facility] Co de Phone Number [facility] from Last 3 Months or Most Recently Relevant to Health Maintenance Insurance ANTHEM PPO ANTHEM PPO [facility] [id number] Care Teams Coat Hanger Shaper Machine Operator Relationship Specialty Start Date End Date Janel Lubin MD [address] [place] [address] PCP - General Family Medicine 09/29/22
--- OUTSIDE RECORDS SUMMARY | 2024-11-19 15:13 | XMS_ITS | Clinical Summary ---
Author Organization [facility] Address [address], [address] [place] [address] Care Team Providers Care Learning Support Assistant Name Role Phone Debra Rose MD [...] (1 of 2) 2018 Lipids 08/29/2022 08/29/2017, 05/26, 12/23/2011 Breast cancer screen 12/19/2022 12/19/2020, 11/22/2019, 11/05/2016, Additional history exists COVID-19 Vaccine ( - 2023- season) 2023 Flu vaccine (#1) 10/26/2024 01/28/2022 Hepatitis A vaccine Aged Out No [...] Breast Ultrasound is indicated if clinically appropriate. Leonila Bobo MD IMG MAMMOGRAPHY ORDERABLES Final Result * (ABNORMAL) Lipid Panel (08/29/2017 12:46 PM EDT) Cholesterol, Total 224(H) 0 - 199 mg/dL 08/30/2017 1:33 AM EDT [facility] Triglycerides 150 0 - 150 mg/dL 08/31/19 18 1:33 AM EDT [facility] HDL 45 40 - 60 mg/dL 08/30/2017 1:33 AM EDT [facility] LDL Calculated 149(H) <100 mg/dL 08/30/2017 1:33 AM EDT [facility] VLDL Cholesterol Calculated 30 Not Established mg/dL 08/30/2017 1:33 AM EDT [facility] BLOOD SPECIMEN / Unknown 08/29/2017 12:46 PM EDT 08/29/2017 8:19 PM EDT Narrative [facility] - 08/30/2017 2:07 AM EDT Performed at: [facility] [address] [place] [address] Leonila Bobo MD CHEMISTRY ORDERABLES Final Resul t [facility] [place] [address], [facility] [phone] from Last 3 Months or Most Recently Relevant to Health Maintenance Insurance Care Teams Learning Support Assistant Relationship Specialty Start Date End Date Debra Rose MD PCP - General Internal Medicine 06/18/22
[2024-11-19 15:25] VITALS: BP 154/94; PULSE 88; RESP 18; TEMP 36.8; O2SAT 99; BMI 41.5
[2024-11-19 15:31] LABS: Microscopic, Urine URINE MICROSCOPIC (MICROSCOPIC)
--- NOTE | 2024-11-19 15:33 | CT_ITS ---
PROCEDURE INFORMATION: Exam: CT Abdomen And Pelvis With Contrast Exam date and time: 11/19/2024 4:17 PM Age: 53 years old Clinical indication: Abdominal pain; Localized; Left; Additional info: Left-sided flank pain, HX of stones TECHNIQUE: Imaging protocol: Computed tomography of the abdomen and pelvis with contrast. Radiation optimization: All CT scans at this facility use at least one of these dose optimization techniques: automated exposure control; mA and/or kV adjustment per patient size (includes targeted exams where dose is matched to clinical indication); or iterative reconstruction. Contrast material: ISOVUE; Contrast volume: 75 ml; Contrast route: IV; COMPARISON: CR XR CHEST EMPLOYEE 07/23/2024 3:29 PM FINDINGS: Lungs: 2.5 cm lobulated nodular structure in the right infrahilar region/right lower lobe, incompletely characterized in this exam. Right lung calcified granuloma is benign. Lung bases are clear. Coronary arteries: There is moderate atherosclerotic calcification of the coronary arteries. Diaphragm: Moderate hiatal hernia. Liver: Liver has a normal contour and parenchymal enhancement. No hepatomegaly or liver masses. Gallbladder and biliary ducts: Gallbladder is normal. There is no evidence of biliary ductal dilation. Pancreas: Benign fatty infiltration of the pancreas. There is no pancreatic duct dilation. There are no peripancreatic inflammatory changes or fluid collections. Spleen: Spleen has a normal size and morphology. No masses. Adrenal glands: Adrenal glands have a normal size and morphology. No concerning nodules or masses. Kidneys and ureters: Right kidney has a normal-size and corticomedullary differentiation. No solid masses or hydronephrosis. No large stones. Question mild left hydronephrosis versus parapelvic cysts. No obstructive left renal stones or significant left perinephric inflammation. No hydroureter. Stomach and bowel: Diffuse colonic diverticulosis. Moderate constipation. The stomach is normal. Duodenum is unremarkable. Appendix: A normal appendix is identified. Intraperitoneal space: There is no evidence of free intraperitoneal or pelvic fluid. No intraperitoneal fluid collections. There is no free intraperitoneal air. Vasculature: Mild atherosclerotic calcification of the arterial vasculature. No aortic aneurysm. Portal venous system is patent. Lymph nodes: No concerning adenopathy. Urinary bladder: Bladder is decompressed and difficult to evaluate. Reproductive: Reproductive organs are unremarkable as visualized. Bones/joints: Mild multilevel degenerative changes of the spine. No acute skeletal abnormality or aggressive osseous lesion. Soft tissues: 2.7 x 2.2 cm cystic lesion in the pancreatic head/neck, incompletely characterized in this exam. No acute soft tissue findings. Other findings: Right hilar calcified granulomas, benign. IMPRESSION: 1. 2.7 x 2.2 cm cystic lesion in the pancreatic head/neck, incompletely characterized in this exam. Follow-up MRI abdomen without and with contrast (pancreas protocol) is recommended. 2. Question mild left hydronephrosis versus parapelvic cysts. No obstructive left renal stones or significant left perinephric inflammation. Consider correlation with ultrasound or CT urogram for adequate characterization. 3. 2.5 cm lobulated nodular structure in the right infrahilar region/right lower lobe, incompletely characterized in this exam. Consider follow-up chest CT with contrast. 4. No other acute findings in the abdomen or pelvis. COMMENTS: Consistent with the [place]'s Incidental Findings Committee white paper (J Am Belkys Radiol 2018): Any incidental renal lesion less than 1 cm or classified as too small to characterize, or any incidental cystic renal lesion characterized as simple-appearing, is likely benign. No follow-up imaging is recommended for these lesions per consensus recommendations based on imaging criteria.
[2024-11-19] MEDS: KETOROLAC 15MG/ML VIAL 15 MG IV (15:38)
[2024-11-19 15:41] LABS: Glucose,Urine (UA) Negative (Negative); Ketones,Urine Negative (Negative); Leukocyte Esterase,Urine Negative (Negative); PH,Urine 5.5 (5.0-8.5); Protein,Urine Negative (Negative); Specific Gravity, Urine >= 1.030 (1.005-1.030); Urobilinogen,Urine 2.0 EU/dl (0.2)
[2024-11-19 15:43] LABS: Bilirubin,Urine Negative (Negative); Color,Urine Dark Yellow (Yellow)
[2024-11-19 15:44] LABS: Bacteria,Urine Trace /lpf; Calcium Oxalate Crystals,Urine Trace /lpf; Squamous Epithelial Cell,Urine Occasional #/hpf (0-5); WBC,Urine Occasional #/hpf (0-3)
[2024-11-19 15:45] LABS: Alanine Aminotransferase 29 U/L (12-78); Albumin Level 4.0 g/dl (3.5-5.0); Albumin/Globulin Ratio 1.4 (1.1-1.8); Alkaline Phosphatase 122 U/L (38-126); Anion Gap 12.3 mEq/L (5-15); Aspartate Amino Transferase 32 U/L (14-36); Bilirubin,Total 0.8 mg/dl (0.2-1.3); Blood Urea Nitrogen 23 mg/dl (7-17); Calcium 9.0 mg/dl (8.4-10.2); Carbon Dioxide 26 mmol/L (22.0-30.0); Chloride 105 mmol/L (98-107); Creatinine Clearance Estimated 60 mL/min (50-200); Creatinine,Serum 0.80 mg/dl (0.52-1.04); Estimated Glomerular Filt Rate 74 ml/min (>60); GFR (African American) 90 ML/MIN (>60); Globulin 2.8 g/dL (1.3-3.2); Glucose 99 mg/dl (74-100); Hematocrit 41.4 % (37.0-47.0); Hemoglobin 13.5 g/dL (12.2-16.2); Immature Granulocytes % 0.4 %; Mean Corpuscular HGB Conc 32.6 g/dL (31.8-35.4); Mean Corpuscular Hemoglobin 28.6 pg (27.0-31.2); Mean Corpuscular Volume 87.7 fl (81-99); Nucleated Red Blood Cells % 0 %; Platelet Count 353 K/mm3 (142-424); Potassium 4.3 mmoL/L (3.5-5.1); Red Blood Count 4.72 M/mm3 (4.20-5.40); Red Cell Distribution Width-SD 43.2 fL; Sodium 139 mmol/L (136-145); Total Protein,Serum 6.8 g/dl (6.3-8.2); White Blood Count 8.0 K/mm3 (4.8-10.8)
[2024-11-19] MEDS: SODIUM CHLORIDE 0.9% 10ML SYR (RAD ONLY) 10 ML IV (16:16)
[2024-11-19] MEDS: IOPAMIDOL-370 (76%);100ML BOTTLE 75 ML IV (16:16)
--- NOTE | 2024-11-19 16:20 | PC.NURSE ---
patient in radiology
[2024-11-19 16:59] VITALS: BP 147/91; PULSE 70; RESP 18; TEMP 36.7; O2SAT 99
[2024-11-19 20:36] LABS: Lipase 54 U/L (23-300)
== END 2024-11-19 16:59 | disposition home or self-care (01) ==
PROVIDERS: Physician Assistant; Emergency Provider Student in an Organized Health Care Education/Training Program; PCP Family Medicine
DX: K86.2 Cyst of pancreas (principal); R10.9 Unspecified abdominal pain
CPT/HCPCS: 74177; 80053; 81001; 83605; 83690; 85025; 96374; 99283; 99284; J1885; Q9967

== ENCOUNTER 2024-12-06 12:05 | Outpatient (CLI) | payer OTHER, BC, SELFPAY ==
[2024-12-06 14:03] LABS: Lipase 54 U/L (23-300)
[2024-12-07 11:12] LABS: CA 19-9 13 U/mL (0-35)
== END 2024-12-06 23:59 | disposition home or self-care (01) ==
LOC: LAB 12:06
PROVIDERS: PCP Family Medicine; Visit Provider Nurse Practitioner Family
DX: K86.2 Cyst of pancreas (principal)
CPT/HCPCS: 36415; 83690; 86301